=== PATIENT | male | born 1980 | race Caucasian/White ===

== ENCOUNTER 2018-06-04 10:16 | Inpatient (IN) ==
--- NOTE | 2018-06-04 10:30 | Emergency Department Note ---
Disposition Clinical Impression: Suicidal ideation Disposition: Admitted As Inpatient Condition: Fair Referrals: NONE,PCP [Primary Care Provider] - Forms: ED Satisfaction Letter Time of Disposition: 14:41 Psych HPI - General Chief Complaint: ED Psychiatric Symptoms Stated Complaint: SI Time Seen by Provider: 06/04/18 10:17 Source: patient, EMS Mode of arrival: EMS Limitations: no limitations Nursing Notes Reviewed: Yes Vital Signs Reviewed: Yes - History of Present Illness HPI Narrative: Nontoxic-appearing 38-year-old male is brought by EMS for evaluation of worsening depression and suicidal ideations. According to the patient, he was walking across the [place] [facility]. [place] when the thought of jumping off a bridge into water crossed his mind. He states that he became very emotional and tearful. He states that at that point, an unknown person or people contacted EMS. He has a history of prior attempts, one of which being holding a loaded 22 caliber pistol to his head. He denies any thoughts of homicidal ideation. The patient was reluctant to answer whether or not he was experiencing any auditory or visual hallucinations. Pt complaint: suicidal ideation, feels depressed Onset (ago): unknown Duration: getting worse History of similar episodes: Yes Improves with: none Worsens with: none Associated Psychiatric Symptoms: depression, suicidal ideation Associated symptoms: Reports: denies other symptoms Traumatic symptoms: denies traumatic injury Self harm or harm to others: admits thoughts of self harm, has plan - Related Data Home Medications Medication Instructions Recorded Confirmed Albuterol Sulfate [Ventolin Hfa] 2 puff IH Q4HR PRN 07/06/16 07/06/16 Atorvastatin [Lipitor] 40 mg PO HS 07/06/16 07/06/16 Docusate Sodium [Stool Softener] 1 cap PO BID PRN 07/06/16 07/06/16 Famotidine [Heartburn Prevention] 20 mg PO DAILY 07/06/16 07/06/16 Haloperidol Decanoate [Haldol 125 mg IM Q4W 07/06/16 07/06/16 Decanoate 100] Lisinopril [Zestril] 20 mg PO DAILY 07/06/16 07/06/16 [place]-3/Dha/Epa/Fish Oil [Fish Oil 1 each PO DAILY 07/06/16 07/06/16 1,000 mg Softgel] Ropinirole HCl [Requip] 2 mg PO DAILY 07/06/16 07/06/16 hydrOXYzine pamoate [Hydroxyzine 1 - 2 cap PO DAILY PRN 07/06/16 07/06/16 Pamoate] Previous Rx's Medication Instructions Recorded Diphenhydramine HCl [Nighttime 50 mg PO DAILY #30 capsule 07/09/16 Sleep Aid] Gabapentin [Neurontin] 600 mg PO BID PRN #60 capsule 07/09/16 Mirtazapine [Remeron] 15 mg PO HS #30 tablet 07/09/16 Ibuprofen [Ibu] 600 mg PO TID #28 tablet 03/13/18 levoFLOXacin [Levaquin] 500 mg PO DAILY #10 tablet 05/24/18 Allergies Allergy/AdvReac Type Severity Reaction Status Date / Time haloperidol [From Haldol] AdvReac Confusion Verified 05/27/18 17:58 risperidone [From Risperdal] AdvReac Confusion Verified 05/27/18 17:58 All systems ED: reviewed and negative except as stated. Review of Systems: As Per HPI Constitutional: Denies: fever, chills, weakness, weight change Eyes: Denies: eye pain, eye discharge, vision change ENT ED: Denies: ear pain, throat pain, dental pain, hearing loss, epistaxis, congestion, dysphagia Cardiovascular: Denies: chest pain, palpitations, dyspnea on exertion, edema, syncope Respiratory: Denies: cough, dyspnea, wheezes, hemoptysis, stridor Gastrointestinal: Denies: abdominal pain, nausea, vomiting, diarrhea, constipation, hematemesis, melena, hematochezia Genitourinary: Denies: urgency, dysuria, frequency, hematuria Musculoskeletal: Denies: back pain, neck pain, arthralgia, myalgia Integumentary: Denies: rash, abrasion, lesions Neurological: Denies: headache, weakness, numbness, paresthesias, confusion, abnormal gait, vertigo Psychiatric: Reports: as per HPI, depression, suicidal thoughts. Denies: anxiety, homicidal thoughts, auditory hallucinations, visual hallucinations Endocrine: Denies: fatigue Hematological/Lymphatic: Denies: easy bleeding, easy bruising Allergic/Immunologic: Denies: facial swelling, urticaria Past Medical History - Past Medical History Attestation: Yes The following information was validated with the patient. Source: patient, nursing notes reviewed Medical history: Reports: asthma, hyperlipidemia, hypertension, other Psychiatric history: Reports: prior suicide attempt, schizophrenia, previous psychiatric hospitalization - Social History Smoking Status: Current every day smoker Smokeless Tobacco Status: No Alcohol use: Reports: occasionally Drug use: Reports: none Physical Exam - General Limitations: no limitations General appearance: alert, in no apparent distress - Head Head exam: atraumatic, normocephalic, normal inspection - Eye Eye exam: Present: normal appearance, PERRL, EOMI. Absent: nystagmus - ENT ENT exam: mucous membranes moist - Neck Neck exam: Present: normal inspection, full ROM, trachea midline - Chest Chest inspection: Present: normal inspection, symmetric chest wall rise - Respiratory Respiratory exam: Present: normal lung sounds bilaterally - Cardiovascular Cardiovascular exam: Present: regular rate, normal rhythm, normal heart sounds - Abdominal Exam Abdominal exam: Present: soft, Non-Tender, normal bowel sounds - Extremities Exam Extremities exam: Present: normal inspection, full ROM. Absent: tenderness, pedal edema - Neurological Exam Neurological exam: Present: alert, oriented X3 - Psychiatric Psychiatric exam: Present: normal affect, normal mood - Skin Skin exam: Present: warm, dry, intact, normal color Course Course Narrative: 1134: I spoke with STEPHANIE Henson with [facility]. Sixto states that a kiosk sales representative from we will evaluate the patient in the emergency department at the next available opportunity. 1430: I have been informed that the patient will be admitted to the inpatient psychiatric unit at this facility. - Reevaluation(s) Reevaluation #1: I was informed by the [facility] nurse that the patient was complaining of discoloration and abnormal lie of his testicles, a point which was not disclosed upon initial evaluation with the patient. MARIA DEL CARMEN Torres supervised a testicular/genital exam. Exam reveals normal testicular lie. No discoloration. No swelling. No tenderness with palpation. No mass or palpable epididymal cord. No penile discharge or drainage. No rash, lesions, or ulcerations. No inguinal adenopathy. At this time, I feel that no further intervention or exploration and that this is required. The patient stated that this was a complaint that he noticed 3 weeks ago however it has all but resolved at this point. I do not feel ultrasound imaging or further laboratory workup is warranted. Time: 13:36 Vital Signs Temperature 99.1 F 06/04/18 10:19 Pulse Rate 78 06/04/18 10:19 Respiratory Rate 18 06/04/18 10:19 Blood Pressure 136/82 06/04/18 10:19 O2 Sat by Pulse Oximetry 100 06/04/18 10:19 Temperature 99.1 F 06/04/18 10:19 Pulse Rate 78 06/04/18 10:19 Respiratory Rate 18 06/04/18 10:19 Blood Pressure 136/82 06/04/18 10:19 O2 Sat by Pulse Oximetry 100 06/04/18 10:19 Oxygen Delivery Oxygen Delivery Room Air Psych - Lab Data Lab results reviewed: Yes I reviewed the patient's lab results. Lab results narrative: Lab Results 06/04/18 06/04/18 06/04/18 Range/Units 10:30 10:30 10:45 WBC 11.7 H (4.3-11.1) K/mcL RBC 5.16 (4.19-5.50) M/mcL Hgb 15.6 (12.9-16.9) g/dL Hct 45.8 (37.5-50.1) % MCV 88.8 (83.0-100.0) fL MCH 30.2 (28.0-33.3) pg MCHC 34.1 (31.6-35.5) g/dL RDW 12.6 (11.5-14.5) % Plt Count 222 (140-400) K/mcL MPV 9.9 (9.4-12.4) fL Immature Gran % 0.4 (0-4) % Seg Neutrophils % 78.9 % Lymphocytes % 14.3 % Monocytes % 5.7 % Eosinophils % 0.3 % Basophils % 0.4 % Neutrophils # 9.2 H (1.6-8.9) K/mcL Lymphocytes # 1.7 (0.6-4.6) K/mcL Monocytes # 0.7 (0.0-1.3) K/mcL Eosinophils # 0.0 (0.0-0.6) K/mcL Basophils # 0.1 (0.0-0.2) K/mcL Sodium (136-145) mEq/L Potassium (3.5-5.1) mEq/L Chloride (98-107) mEq/L Carbon Dioxide (23-29) mEq/L BUN (6-20) mg/dL Creatinine (0.70-1.30) mg/dL Est GFR ( Amer) (> 60) Est GFR (Non-Af Amer) (> 60) BUN/Creatinine Ratio (6-26) Glucose (70-105) mg/dL Calculated Osmolality (280-300) Calcium (8.6-10.3) mg/dL Urine Color Yellow (Yellow) Urine Clarity Clear (Clear) Urine pH 6.0 (5.0-8.0) pH Units Ur Specific [place] 1.021 (1.010-1.025) Urine Protein Negative (Neg-Trace) mg/dL Urine Glucose (UA) Normal (Normal) mg/dL Urine Ketones Negative (Negative) mg/dL Urine Blood Negative (Negative) Urine Nitrite Negative (Negative) Urine Bilirubin Negative (Negative) Urine Urobilinogen Normal (Normal) mg/dL Ur Leukocyte Esterase Negative (Negative) Salicylates (15.0-30.0) mg/dL Urine Opiates Screen Negative (Zyfrxn=899) ng/mL Acetaminophen (10-20) mcg/mL Ur Barbiturates Screen Negative (Adbdho=542) ng/mL Ur Phencyclidine Scrn Negative (Cutoff=25) ng/mL Ur Amphetamines Screen Negative (Rxgrwe=4495) ng/mL U Benzodiazepines Scrn Negative (Wixkyy=454) ng/mL Urine Cocaine Screen Negative (Cutoff= 300) ng/mL U Marijuana (THC) Screen Negative (Cutoff = 50) ng/mL Ur Drug Screen Interp See Below Ethyl Alcohol (Less than 10) mg/dL 06/04/18 Range/Units 10:45 WBC (4.3-11.1) K/mcL RBC (4.19-5.50) M/mcL Hgb (12.9-16.9) g/dL Hct (37.5-50.1) % MCV (83.0-100.0) fL MCH (28.0-33.3) pg MCHC (31.6-35.5) g/dL RDW (11.5-14.5) % Plt Count (140-400) K/mcL MPV (9.4-12.4) fL Immature Gran % (0-4) % Seg Neutrophils % % Lymphocytes % % Monocytes % % Eosinophils % % Basophils % % Neutrophils # (1.6-8.9) K/mcL Lymphocytes # (0.6-4.6) K/mcL Monocytes # (0.0-1.3) K/mcL Eosinophils # (0.0-0.6) K/mcL Basophils # (0.0-0.2) K/mcL Sodium 138 (136-145) mEq/L Potassium 4.2 (3.5-5.1) mEq/L Chloride 104 (98-107) mEq/L Carbon Dioxide 29 (23-29) mEq/L BUN 17 (6-20) mg/dL Creatinine 0.97 (0.70-1.30) mg/dL Est GFR ( Amer) > 60 (> 60) Est GFR (Non-Af Amer) > 60 (> 60) BUN/Creatinine Ratio 18 (6-26) Glucose 110 H (70-105) mg/dL Calculated Osmolality 288 (280-300) Calcium 9.8 (8.6-10.3) mg/dL Urine Color (Yellow) Urine Clarity (Clear) Urine pH (5.0-8.0) pH Units Ur Specific [place] (1.010-1.025) Urine Protein (Neg-Trace) mg/dL Urine Glucose (UA) (Normal) mg/dL Urine Ketones (Negative) mg/dL Urine Blood (Negative) Urine Nitrite (Negative) Urine Bilirubin (Negative) Urine Urobilinogen (Normal) mg/dL Ur Leukocyte Esterase (Negative) Salicylates < 2.5 L (15.0-30.0) mg/dL Urine Opiates Screen (Pbkovf=000) ng/mL Acetaminophen < 10 L (10-20) mcg/mL Ur Barbiturates Screen (Cjudpa=598) ng/mL Ur Phencyclidine Scrn (Cutoff=25) ng/mL Ur Amphetamines Screen (Bmdfxh=3263) ng/mL U Benzodiazepines Scrn (Ajymmr=059) ng/mL Urine Cocaine Screen (Cutoff= 300) ng/mL U Marijuana (THC) Screen (Cutoff = 50) ng/mL Ur Drug Screen Interp Ethyl Alcohol < 10 (Less than 10) mg/dL Result diagrams: 06/04/18 10:45 06/04/18 10:45 Lab Results 06/04/18 06/04/18 06/04/18 Range/Units 10:30 10:30 10:45 WBC 11.7 H (4.3-11.1) K/mcL RBC 5.16 (4.19-5.50) M/mcL Hgb 15.6 (12.9-16.9) g/dL Hct 45.8 (37.5-50.1) % MCV 88.8 (83.0-100.0) fL MCH 30.2 (28.0-33.3) pg MCHC 34.1 (31.6-35.5) g/dL RDW 12.6 (11.5-14.5) % Plt Count 222 (140-400) K/mcL MPV 9.9 (9.4-12.4) fL Immature Gran % 0.4 (0-4) % Seg Neutrophils % 78.9 % Lymphocytes % 14.3 % Monocytes % 5.7 % Eosinophils % 0.3 % Basophils % 0.4 % Neutrophils # 9.2 H (1.6-8.9) K/mcL Lymphocytes # 1.7 (0.6-4.6) K/mcL Monocytes # 0.7 (0.0-1.3) K/mcL Eosinophils # 0.0 (0.0-0.6) K/mcL Basophils # 0.1 (0.0-0.2) K/mcL Sodium (136-145) mEq/L Potassium (3.5-5.1) mEq/L Chloride (98-107) mEq/L Carbon Dioxide (23-29) mEq/L BUN (6-20) mg/dL Creatinine (0.70-1.30) mg/dL Est GFR ( Amer) (> 60) Est GFR (Non-Af Amer) (> 60) BUN/Creatinine Ratio (6-26) Glucose (70-105) mg/dL Calculated Osmolality (280-300) Calcium (8.6-10.3) mg/dL Urine Color Yellow (Yellow) Urine Clarity Clear (Clear) Urine pH 6.0 (5.0-8.0) pH Units Ur Specific [place] 1.021 (1.010-1.025) Urine Protein Negative (Neg-Trace) mg/dL Urine Glucose (UA) Normal (Normal) mg/dL Urine Ketones Negative (Negative) mg/dL Urine Blood Negative (Negative) Urine Nitrite Negative (Negative) Urine Bilirubin Negative (Negative) Urine Urobilinogen Normal (Normal) mg/dL Ur Leukocyte Esterase Negative (Negative) Salicylates (15.0-30.0) mg/dL Urine Opiates Screen Negative (Rahswt=874) ng/mL Acetaminophen (10-20) mcg/mL Ur Barbiturates Screen Negative (Dexumk=839) ng/mL Ur Phencyclidine Scrn Negative (Cutoff=25) ng/mL Ur Amphetamines Screen Negative (Eadxkp=8496) ng/mL U Benzodiazepines Scrn Negative (Xgiiwg=637) ng/mL Urine Cocaine Screen Negative (Cutoff= 300) ng/mL U Marijuana (THC) Screen Negative (Cutoff = 50) ng/mL Ur Drug Screen Interp See Below Ethyl Alcohol (Less than 10) mg/dL 06/04/18 Range/Units 10:45 WBC (4.3-11.1) K/mcL RBC (4.19-5.50) M/mcL Hgb (12.9-16.9) g/dL Hct (37.5-50.1) % MCV (83.0-100.0) fL MCH (28.0-33.3) pg MCHC (31.6-35.5) g/dL RDW (11.5-14.5) % Plt Count (140-400) K/mcL MPV (9.4-12.4) fL Immature Gran % (0-4) % Seg Neutrophils % % Lymphocytes % % Monocytes % % Eosinophils % % Basophils % % Neutrophils # (1.6-8.9) K/mcL Lymphocytes # (0.6-4.6) K/mcL Monocytes # (0.0-1.3) K/mcL Eosinophils # (0.0-0.6) K/mcL Basophils # (0.0-0.2) K/mcL Sodium 138 (136-145) mEq/L Potassium 4.2 (3.5-5.1) mEq/L Chloride 104 (98-107) mEq/L Carbon Dioxide 29 (23-29) mEq/L BUN 17 (6-20) mg/dL Creatinine 0.97 (0.70-1.30) mg/dL Est GFR ( Amer) > 60 (> 60) Est GFR (Non-Af Amer) > 60 (> 60) BUN/Creatinine Ratio 18 (6-26) Glucose 110 H (70-105) mg/dL Calculated Osmolality 288 (280-300) Calcium 9.8 (8.6-10.3) mg/dL Urine Color (Yellow) Urine Clarity (Clear) Urine pH (5.0-8.0) pH Units Ur Specific [place] (1.010-1.025) Urine Protein (Neg-Trace) mg/dL Urine Glucose (UA) (Normal) mg/dL Urine Ketones (Negative) mg/dL Urine Blood (Negative) Urine Nitrite (Negative) Urine Bilirubin (Negative) Urine Urobilinogen (Normal) mg/dL Ur Leukocyte Esterase (Negative) Salicylates < 2.5 L (15.0-30.0) mg/dL Urine Opiates Screen (Dlmpsl=852) ng/mL Acetaminophen < 10 L (10-20) mcg/mL Ur Barbiturates Screen (Bzlcno=466) ng/mL Ur Phencyclidine Scrn (Cutoff=25) ng/mL Ur Amphetamines Screen (Dxwjzs=0049) ng/mL U Benzodiazepines Scrn (Igfdez=857) ng/mL Urine Cocaine Screen (Cutoff= 300) ng/mL U Marijuana (THC) Screen (Cutoff = 50) ng/mL Ur Drug Screen Interp Ethyl Alcohol < 10 (Less than 10) mg/dL Psychiatric Medical Clearance - Medical Clearance Checklist Does the patient have a NEW psychiatric condition?: No Any abnormalities indicating possible medical illness?: No Any history of medical issues?: No Medical History: No Social History Section defined Any abnormal vital signs prior to transfer?: No Current Vitals: Last Vital Signs Temp 99.1 F 06/04/18 10:19 Pulse 78 06/04/18 10:19 Resp 18 06/04/18 10:19 BP 136/82 06/04/18 10:19 Pulse Ox 100 06/04/18 10:19 Is the patient intoxicated or cognitively impaired?: No Psychiatric Lab Panel: Drug Levels and Toxicity 06/04/18 06/04/18 10:30 10:45 Urine Opiates Screen Negative Acetaminophen < 10 L Ur Barbiturates Screen Negative Ur Phencyclidine Scrn Negative Ur Amphetamines Screen Negative U Benzodiazepines Scrn Negative Urine Cocaine Screen Negative U Marijuana (THC) Screen Negative Ethyl Alcohol < 10 Any abnormalities on the physical exam?: No Any abnormal labs?: No Abnormal Labs: Abnormal lab results WBC 11.7 K/mcL (4.3-11.1) H 06/04/18 10:45 Neutrophils # 9.2 K/mcL (1.6-8.9) H 06/04/18 10:45 Glucose 110 mg/dL (70-105) H 06/04/18 10:45 Salicylates < 2.5 mg/dL (15.0-30.0) L 06/04/18 10:45 Acetaminophen < 10 mcg/mL (10-20) L 06/04/18 10:45 Does the patient require durable medical equiptment?: No Is the patient ambulatory?: Yes Is the patient a fall risk?: No Has the patient been medically cleared?: Yes Statement of Medical Clearance: I have evaluated the patient, reviewed diagnostic information, and certify that the patient's medical condition is sufficiently stable that transfer to the psychiatric unit does not pose a significant risk of deterioration.
[2018-06-04 10:46] LABS: Bilirubin,Urine Negative (Negative); Blood,Urine Negative (Negative); Clarity,Urine Clear (Clear); Color,Urine Yellow (Yellow); Glucose,Urine (UA) Normal (Normal); Ketones,Urine Negative (Negative); Leukocyte Esterase,Urine Negative (Negative); Nitrite,Urine Negative (Negative); Protein,Urine Negative (Neg-Trace); Specific Gravity,Urine 1.021 (1.010-1.025); Urobilinogen,Urine Normal (Normal)
[2018-06-04 10:54] LABS: Amphetamine Screen,Urine Negative ng/mL (Cutoff=1000); Barbiturate Screen,Urine Negative ng/mL (Cutoff=200); Benzodiazepines Screen,Urine Negative ng/mL (Cutoff=200); Cannabinoid Screen,Urine Negative ng/mL (Cutoff = 50); Cocaine Screen,Urine Negative ng/mL (Cutoff= 300); Opiate Screen,Urine Negative ng/mL (Cutoff=300); Phencyclidine Screen,Urine Negative ng/mL (Cutoff=25)
--- NOTE | 2018-06-04 10:58 | Emergency Department Note ---
Disposition Clinical Impression: Suicidal ideation Disposition: Admitted As Inpatient Condition: Fair Referrals: NONE,PCP [Primary Care Provider] - Forms: ED Satisfaction Letter Time of Disposition: 14:43 General Adult HPI - General Chief complaint: ED Psychiatric Symptoms Stated complaint: SI Time Seen by Provider: 06/04/18 10:17 Source: patient, EMS Mode of arrival: EMS Limitations: no limitations - History of Present Illness Pain Scale: 0 - Related Data Home Medications Medication Instructions Recorded Confirmed Albuterol Sulfate [Ventolin Hfa] 2 puff IH Q4HR PRN 07/06/16 07/06/16 Atorvastatin [Lipitor] 40 mg PO HS 07/06/16 07/06/16 Docusate Sodium [Stool Softener] 1 cap PO BID PRN 07/06/16 07/06/16 Famotidine [Heartburn Prevention] 20 mg PO DAILY 07/06/16 07/06/16 Haloperidol Decanoate [Haldol 125 mg IM Q4W 07/06/16 07/06/16 Decanoate 100] Lisinopril [Zestril] 20 mg PO DAILY 07/06/16 07/06/16 [place]-3/Dha/Epa/Fish Oil [Fish Oil 1 each PO DAILY 07/06/16 07/06/16 1,000 mg Softgel] Ropinirole HCl [Requip] 2 mg PO DAILY 07/06/16 07/06/16 hydrOXYzine pamoate [Hydroxyzine 1 - 2 cap PO DAILY PRN 07/06/16 07/06/16 Pamoate] Previous Rx's Medication Instructions Recorded Diphenhydramine HCl [Nighttime 50 mg PO DAILY #30 capsule 07/09/16 Sleep Aid] Gabapentin [Neurontin] 600 mg PO BID PRN #60 capsule 07/09/16 Mirtazapine [Remeron] 15 mg PO HS #30 tablet 07/09/16 Ibuprofen [Ibu] 600 mg PO TID #28 tablet 03/13/18 levoFLOXacin [Levaquin] 500 mg PO DAILY #10 tablet 05/24/18 Allergies Allergy/AdvReac Type Severity Reaction Status Date / Time haloperidol [From Haldol] AdvReac Confusion Verified 05/27/18 17:58 risperidone [From Risperdal] AdvReac Confusion Verified 05/27/18 17:58 Constitutional: Denies: fever, chills, weakness, weight change Eyes: Denies: eye pain, eye discharge, vision change ENT ED: Denies: ear pain, throat pain, dental pain, hearing loss, epistaxis, congestion, dysphagia Cardiovascular: Denies: chest pain, palpitations, dyspnea on exertion, edema, syncope Respiratory: Denies: cough, dyspnea, wheezes, hemoptysis, stridor Gastrointestinal: Denies: abdominal pain, nausea, vomiting, diarrhea, constipation, hematemesis, melena, hematochezia Genitourinary: Denies: urgency, dysuria, frequency, hematuria Musculoskeletal: Denies: back pain, neck pain, arthralgia, myalgia Integumentary: Denies: rash, abrasion, lesions Neurological: Denies: headache, weakness, numbness, paresthesias, confusion, abnormal gait, vertigo Psychiatric: Reports: as per HPI, depression, suicidal thoughts. Denies: anxiety, homicidal thoughts, auditory hallucinations, visual hallucinations Endocrine: Denies: fatigue Hematological/Lymphatic: Denies: easy bleeding, easy bruising Allergic/Immunologic: Denies: facial swelling, urticaria Past Medical History - Past Medical History Medical history: Reports: asthma, hyperlipidemia, hypertension, other Psychiatric history: Reports: prior suicide attempt, schizophrenia, previous psychiatric hospitalization - Social History Smoking Status: Current every day smoker Smokeless Tobacco Status: No Alcohol use: Reports: occasionally Drug use: Reports: none Physical Exam - General Limitations: no limitations General appearance: alert, in no apparent distress Course Vital Signs Temperature 99.1 F 06/04/18 10:19 Pulse Rate 78 06/04/18 10:19 Respiratory Rate 18 06/04/18 10:19 Blood Pressure 136/82 06/04/18 10:19 O2 Sat by Pulse Oximetry 100 06/04/18 10:19 Temperature 99.1 F 06/04/18 10:19 Pulse Rate 78 06/04/18 10:19 Respiratory Rate 18 06/04/18 10:19 Blood Pressure 136/82 06/04/18 10:19 O2 Sat by Pulse Oximetry 100 06/04/18 10:19 Oxygen Delivery Oxygen Delivery Room Air Medical Decision Making - Lab Data Result diagrams: 06/04/18 10:45 06/04/18 10:45 Lab Results 06/04/18 06/04/18 06/04/18 Range/Units 10:30 10:30 10:45 WBC 11.7 H (4.3-11.1) K/mcL RBC 5.16 (4.19-5.50) M/mcL Hgb 15.6 (12.9-16.9) g/dL Hct 45.8 (37.5-50.1) % MCV 88.8 (83.0-100.0) fL MCH 30.2 (28.0-33.3) pg MCHC 34.1 (31.6-35.5) g/dL RDW 12.6 (11.5-14.5) % Plt Count 222 (140-400) K/mcL MPV 9.9 (9.4-12.4) fL Immature Gran % 0.4 (0-4) % Seg Neutrophils % 78.9 % Lymphocytes % 14.3 % Monocytes % 5.7 % Eosinophils % 0.3 % Basophils % 0.4 % Neutrophils # 9.2 H (1.6-8.9) K/mcL Lymphocytes # 1.7 (0.6-4.6) K/mcL Monocytes # 0.7 (0.0-1.3) K/mcL Eosinophils # 0.0 (0.0-0.6) K/mcL Basophils # 0.1 (0.0-0.2) K/mcL Sodium (136-145) mEq/L Potassium (3.5-5.1) mEq/L Chloride (98-107) mEq/L Carbon Dioxide (23-29) mEq/L BUN (6-20) mg/dL Creatinine (0.70-1.30) mg/dL Est GFR ( Amer) (> 60) Est GFR (Non-Af Amer) (> 60) BUN/Creatinine Ratio (6-26) Glucose (70-105) mg/dL Calculated Osmolality (280-300) Calcium (8.6-10.3) mg/dL Urine Color Yellow (Yellow) Urine Clarity Clear (Clear) Urine pH 6.0 (5.0-8.0) pH Units Ur Specific [place] 1.021 (1.010-1.025) Urine Protein Negative (Neg-Trace) mg/dL Urine Glucose (UA) Normal (Normal) mg/dL Urine Ketones Negative (Negative) mg/dL Urine Blood Negative (Negative) Urine Nitrite Negative (Negative) Urine Bilirubin Negative (Negative) Urine Urobilinogen Normal (Normal) mg/dL Ur Leukocyte Esterase Negative (Negative) Salicylates (15.0-30.0) mg/dL Urine Opiates Screen Negative (Miggrc=352) ng/mL Acetaminophen (10-20) mcg/mL Ur Barbiturates Screen Negative (Sejawc=563) ng/mL Ur Phencyclidine Scrn Negative (Cutoff=25) ng/mL Ur Amphetamines Screen Negative (Pysxjq=5458) ng/mL U Benzodiazepines Scrn Negative (Dktiec=916) ng/mL Urine Cocaine Screen Negative (Cutoff= 300) ng/mL U Marijuana (THC) Screen Negative (Cutoff = 50) ng/mL Ur Drug Screen Interp See Below Ethyl Alcohol (Less than 10) mg/dL 06/04/18 Range/Units 10:45 WBC (4.3-11.1) K/mcL RBC (4.19-5.50) M/mcL Hgb (12.9-16.9) g/dL Hct (37.5-50.1) % MCV (83.0-100.0) fL MCH (28.0-33.3) pg MCHC (31.6-35.5) g/dL RDW (11.5-14.5) % Plt Count (140-400) K/mcL MPV (9.4-12.4) fL Immature Gran % (0-4) % Seg Neutrophils % % Lymphocytes % % Monocytes % % Eosinophils % % Basophils % % Neutrophils # (1.6-8.9) K/mcL Lymphocytes # (0.6-4.6) K/mcL Monocytes # (0.0-1.3) K/mcL Eosinophils # (0.0-0.6) K/mcL Basophils # (0.0-0.2) K/mcL Sodium 138 (136-145) mEq/L Potassium 4.2 (3.5-5.1) mEq/L Chloride 104 (98-107) mEq/L Carbon Dioxide 29 (23-29) mEq/L BUN 17 (6-20) mg/dL Creatinine 0.97 (0.70-1.30) mg/dL Est GFR ( Amer) > 60 (> 60) Est GFR (Non-Af Amer) > 60 (> 60) BUN/Creatinine Ratio 18 (6-26) Glucose 110 H (70-105) mg/dL Calculated Osmolality 288 (280-300) Calcium 9.8 (8.6-10.3) mg/dL Urine Color (Yellow) Urine Clarity (Clear) Urine pH (5.0-8.0) pH Units Ur Specific [place] (1.010-1.025) Urine Protein (Neg-Trace) mg/dL Urine Glucose (UA) (Normal) mg/dL Urine Ketones (Negative) mg/dL Urine Blood (Negative) Urine Nitrite (Negative) Urine Bilirubin (Negative) Urine Urobilinogen (Normal) mg/dL Ur Leukocyte Esterase (Negative) Salicylates < 2.5 L (15.0-30.0) mg/dL Urine Opiates Screen (Rzroxv=960) ng/mL Acetaminophen < 10 L (10-20) mcg/mL Ur Barbiturates Screen (Cejhcc=853) ng/mL Ur Phencyclidine Scrn (Cutoff=25) ng/mL Ur Amphetamines Screen (Pbmdmq=2718) ng/mL U Benzodiazepines Scrn (Bbifxg=820) ng/mL Urine Cocaine Screen (Cutoff= 300) ng/mL U Marijuana (THC) Screen (Cutoff = 50) ng/mL Ur Drug Screen Interp Ethyl Alcohol < 10 (Less than 10) mg/dL Attestation Statement - Attestation Attestation: For this encounter, I have reviewed the [employer] or PA documentation, treatment plan, and medical decision making; and I have had face to face time with this patient. Patient to the ED with suicidal ideation. [place] on [address] Patient laying in bed. Talking to a chair. Denies physical complaint. Plan. Medical clearance and 1A evaluation. Patient admitted to psych
[2018-06-04 11:01] LABS: Basophils # 0.1 K/mcL (0.0-0.2); Basophils % 0.4 %; Eosinophils % 0.3 %; Hematocrit 45.8 % (37.5-50.1); Hemoglobin 15.6 g/dL (12.9-16.9); Immature Granulocytes % 0.4 % (0-4); Lymphocytes # 1.7 K/mcL (0.6-4.6); Lymphocytes % 14.3 %; Mean Corpuscular HGB Conc 34.1 g/dL (31.6-35.5); Mean Corpuscular Hemoglobin 30.2 pg (28.0-33.3); Mean Corpuscular Volume 88.8 fL (83.0-100.0); Mean Platelet Volume 9.9 fL (9.4-12.4); Monocytes # 0.7 K/mcL (0.0-1.3); Monocytes % 5.7 %; Neutrophils # 9.2 K/mcL (1.6-8.9); Platelet Count 222 K/mcL (140-400); Red Blood Count 5.16 M/mcL (4.19-5.50); Red Cell Distribution Width 12.6 % (11.5-14.5); Segmented Neutrophils % 78.9 %
[2018-06-04 11:25] LABS: Acetaminophen < 10 mcg/mL (10-20); BUN/Creatinine Ratio 18 (6-26); Blood Urea Nitrogen 17 mg/dL (6-20); Calcium 9.8 mg/dL (8.6-10.3); Carbon Dioxide 29 mEq/L (23-29); Chloride 104 mEq/L (98-107); Ethanol < 10 mg/dL (Less than 10); Glucose 110 mg/dL (70-105); Osmolality,Calculated 288 (280-300); Potassium 4.2 mEq/L (3.5-5.1); Salicylate < 2.5 mg/dL (15.0-30.0); Sodium 138 mEq/L (136-145); eGFR For Non-African Americans > 60 (> 60)
[2018-06-04] MEDS ORDERED: Acetaminophen 325 MG TABLET PO PRN (15:18)
[2018-06-04] MEDS ORDERED: Mag Hydrox/Al Hydrox/Simeth 30 ML UDC PO PRN (15:18)
[2018-06-04] MEDS ORDERED: Haloperidol Lactate 5 MG/ML VIAL IM PRN (15:18)
[2018-06-04] MEDS ORDERED: MOM Conc 10 ML UD.LIQ PO PRN (15:18)
[2018-06-04] MEDS ORDERED: *HR* LORazepam 2 MG/ML VIAL IM PRN (15:18)
[2018-06-04] MEDS ORDERED: Ibuprofen 400 MG TABLET PO PRN (15:18)
[2018-06-04] MEDS ORDERED: *HR* LORazepam 1 MG TABLET PO PRN (15:18)
[2018-06-04] MEDS: hydrOXYzine pamoate 25 MG CAPSULE PO PRN (20:50)
[2018-06-05] MEDS: Nicotine 21 MG PATCH.TD24 TD SCH (12:12)
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
[2018-06-05] MEDS ORDERED: hydrOXYzine pamoate 25 MG CAPSULE PO PRN (12:24)
[2018-06-05] MEDS ORDERED: Gabapentin 300 MG CAPSULE PO PRN (12:24)
[2018-06-05] MEDS ORDERED: Aripiprazole Lauroxil [Aristada] 882 MG IM SCH (12:30)
[2018-06-05] MEDS: Venlafaxine XR (24 HR) 75 MG CAP.ER.24H PO SCH (14:40)
[2018-06-05] MEDS: hydrOXYzine pamoate 25 MG CAPSULE PO PRN (20:30)
[2018-06-06] MEDS: Nicotine 21 MG PATCH.TD24 TD SCH (08:41)
[2018-06-06] MEDS: Famotidine 20 MG TABLET PO SCH (08:42)
[2018-06-06] MEDS: rOPINIRole 1 MG TABLET PO SCH (08:42)
[2018-06-06] MEDS: Lisinopril 20 MG TABLET PO SCH (08:42)
[2018-06-06] MEDS: Venlafaxine XR (24 HR) 75 MG CAP.ER.24H PO SCH (08:42)
--- NOTE | 2018-06-06 13:46 | Psychiatry Progress Note ---
Date of Encounter: 06/06/18 Time of Encounter: 13:20 Subjective Interval history: Patient seen today , case d/w treatment team . patient remains psychotic , has been keeping to himself, denies suicidal ideation , denies any bad auditory hallucination ,states voices are good voices , denies visual hallucination , he is feeling better but is anxious. start discharge planning. pt has case management. states sometimes they ask me to take my medicine so i take them and then forget to take them , educated to take medicine at his case management , he acknowledged. Review of Systems Psychiatric: Reports: depression, anxiety, abnormal sleep pattern, visual hallucinations, difficulty concentrating Results - Vital Signs Vital Signs: Temp Pulse Resp BP Pulse Ox 97.8 F 60 18 119/78 98 06/06/18 10:34 06/06/18 10:34 06/06/18 10:34 06/06/18 10:34 06/05/18 08:25 Assessment and Plan (1) Suicidal ideation Current visit: Yes Status: Acute Risks, benefits, side effects, alternatives discussed w/pt: Yes Patient agreeable to treatment: Yes (2) Schizoaffective disorder Current visit: Yes Status: Acute Risks, benefits, side effects, alternatives discussed w/pt: Yes Patient agreeable to treatment: Yes Qualifiers: Schizoaffective disorder type: depressive Qualified Code(s): F25.1 - Schizoaffective disorder, depressive type Consult Discharge Plan - Plan Referrals: [facility] [Outside] - 06/15/18 2:00 pm (The above apointment is with Daya Adams for mental health counseling and case managment servcies. You will also for Salome Graham for outpatient psychiatric assessment and medciation management services on 06/24/2018 at 9:30am.) Psychiatry Exam - Constitutional Vitals: Temp Pulse Resp BP Pulse Ox 97.8 F 60 18 119/78 98 06/06/18 10:34 06/06/18 10:34 06/06/18 10:34 06/06/18 10:34 06/05/18 08:25 General appearance: thin - Musculoskeletal Gait: normal Station: other Strength & Tone: normal for patient - Psychiatric Patient Orientation: Yes Person, Yes Time, Yes Place Level of alertness: Alert Behavior: calm, cooperative Psychomotor activity: Normal Eye Contact: Maintains Eye Contact Mood Description: Euthymic/stable Affect description: constricted Speech Volume: Normal Speech pattern: coherent Language & Vocabulary: consistent with education Thought Process: Intact Thought Content: Yes Preoccupation, Yes Paranoid delusion Perceptual Disturbances: Yes Auditory hallucinations Memory Description: Grossly Intact Patient Reliability: Reliable Historian Fund of knowledge: Yes below average Judgment: Limited Insight: Partial
[2018-06-06] MEDS: hydrOXYzine pamoate 25 MG CAPSULE PO PRN (20:07)
[2018-06-07] MEDS: Venlafaxine XR (24 HR) 75 MG CAP.ER.24H PO SCH (08:17)
[2018-06-07] MEDS: Famotidine 20 MG TABLET PO SCH (08:17)
[2018-06-07] MEDS: Nicotine 21 MG PATCH.TD24 TD SCH (08:17)
[2018-06-07] MEDS: Lisinopril 20 MG TABLET PO SCH (08:18)
[2018-06-07] MEDS: rOPINIRole 1 MG TABLET PO SCH (08:18)
[2018-06-07 09:26] VITALS: BP 118/79
--- NOTE | 2018-06-07 10:03 | Discharge Summary ---
Date of Encounter: 06/07/18 Time of Encounter: 09:32 Diagnosis - Discharge Diagnosis (1) Suicidal ideation Status: Resolved Comments: Patient not having suicidal/homicidal ideation . (2) Schizoaffective disorder Status: Chronic Comments: patient showed improvement on monthly injectable aristada next is due 06/11 . Qualifiers: Schizoaffective disorder type: depressive Qualified Code(s): F25.1 - Schizoaffective disorder, depressive type Medications - Discharge Medications Prescriptions: Venlafaxine XR (24 HR) [Effexor XR] 150 mg PO DAILY #30 cap.er.24h Atorvastatin [Lipitor] 40 mg PO HS 07/06/16 [History] Famotidine [Heartburn Prevention] 20 mg PO DAILY 07/06/16 [History] Lisinopril [Zestril] 20 mg PO DAILY 07/06/16 [History] Ropinirole HCl [Requip] 2 mg PO DAILY 07/06/16 [History] hydrOXYzine pamoate [Hydroxyzine Pamoate] 1 cap PO TID PRN 07/06/16 [History] Gabapentin [Neurontin] 600 mg PO BID PRN #60 capsule 07/09/16 [Rx] Aripiprazole Lauroxil [Aristada] 882 mg IM Q4W 06/04/18 [History] Venlafaxine XR (24 HR) [Effexor XR] 150 mg PO DAILY #30 cap.er.24h 06/07/18 [Rx] 3 Allergy/AdvReac Type Severity Reaction Status Date / Time haloperidol [From Haldol] AdvReac Confusion Verified 05/27/18 17:58 risperidone [From Risperdal] AdvReac Confusion Verified 05/27/18 17:58 Provider Date of admission: 06/04/18 14:42 Primary care physician: PCP NONE Psychiatry Exam - Constitutional Vitals: Temp Pulse Resp BP Pulse Ox 97.4 F L 58 16 118/79 98 06/07/18 09:00 06/07/18 09:00 06/07/18 09:00 06/07/18 09:00 06/05/18 08:25 General appearance: age & developmentally appropriate, well-groomed, well- nourished - Musculoskeletal Gait: normal Station: relaxed Strength & Tone: normal for patient - Psychiatric Patient Orientation: Yes Person, Yes Time, Yes Place Level of alertness: Alert Behavior: cooperative Psychomotor activity: Normal Eye Contact: Maintains Eye Contact Mood Description: Euthymic/stable Affect description: congruent with mood Speech Volume: Normal Speech pattern: normal rate Language & Vocabulary: consistent with education Thought Process: Intact Thought Content: Yes Intact Perceptual Disturbances: No Auditory hallucinations, No Visual hallucinations Attention Span Ability: Capable of Focused Attention Memory Description: Grossly Intact Patient Reliability: Reliable Historian Fund of knowledge: Yes below average Intelligence Estimate: Below Average Judgment: Fair Insight: Partial Hospital Course Hospital course: Mr. Ewing is a 38 year old male was admitted from ED after he tried to jump off the bridge but then did not , he has h/o Schizoaffective disorder, alcohol abuse and lower cognitive functioning. no substance use , he has been taking his medication and get medicine daily from case management. he was depress and effexor xr was increased to 150 mg and all other medications continued. he showed improvement , denied suicidal/homicidal ideation , no psychosis at present. moods better and he feels happy today . plan to discharge patient to his family and follow up referal given. Time spent discussing smoking cessation with patient: 3 to 10 minutes Does patient wish to continue nicotine replacement upon disc: No (states i am not ready i have already cut down.) - Time Spent with Patient Total time spent providing and/or coordinating discharge services: Greater than 30 minutes Assessment and Plan - Patient/Caregiver Discharge Instructions Activity: resume usual activities as tolerated Diet: regular diet - Follow up Plan Follow up with: [facility] [Outside] - 06/15/18 2:00 pm (The above apointment is with Daya Adams for mental health counseling and case managment servcies. You will also for Salome Graham for outpatient psychiatric assessment and medciation management services on 06/24/2018 at 9:30am.) Functional capacity at discharge: independent ambulation Overall status at discharge: patient is back to baseline Disposition: Home, Self-Care Quality - Multiple Antipsychotics Patient discharged on 2 or more antipsychotic medications: No Procedures - Procedures Procedures: Medication Management, Crisis Stabilization, Supportive Therapy, Group Therapy, Psychoeducational Therapy
[2018-06-11] MEDS ORDERED: Aripiprazole Lauroxil [Aristada] 882 MG IM SCH (09:00)
== END 2018-06-07 10:40 | disposition home or self-care (01) | DRG 885 ==
LOC: EMEROOARM 10:16 → 1ANU 14:42
PROVIDERS: ADMIT Psychiatry & Neurology Psychiatry; ATTEND Psychiatry & Neurology Psychiatry

== ENCOUNTER 2018-06-24 13:48 | Observation (INO) ==
[2018-06-24] MEDS ORDERED: Ziprasidone injection 20 MG/ML VIAL IM ONE (14:23)
--- NOTE | 2018-06-24 14:28 | Emergency Department Note ---
Disposition Clinical Impression: Elevated ETOH level Qualifiers: Blood alcohol level: 120-199 mg/100 ml Qualified Code(s): Y90.6 - Blood alcohol level of 120-199 mg/100 ml Psychosis Qualifiers: Psychosis type: unspecified psychosis type Qualified Code(s): F29 - Unspecified psychosis not due to a substance or known physiological condition Disposition: Still a Patient Referrals: NONE,PCP [Primary Care Provider] - Forms: ED Satisfaction Letter Psych HPI - General Chief Complaint: ED Psychiatric Symptoms Stated Complaint: 1A Time Seen by Provider: 06/24/18 14:00 Source: patient, EMS Limitations: altered mental status Nursing Notes Reviewed: Yes Vital Signs Reviewed: Yes - History of Present Illness HPI Narrative: 38-year-old male presents emergency department with concern for agitation. Patient states that he does not know was going on. He does not have any homicidal or suicidal ideations. Was reported that patient turned over and slammed a table outside of his outside psychiatric facility. Patient states he is taking a super drug at home. - Related Data Home Medications Medication Instructions Recorded Confirmed RX: Atorvastatin [Lipitor] 40 mg PO HS 07/06/16 06/14/18 RX: Famotidine [Heartburn 20 mg PO DAILY 07/06/16 06/14/18 Prevention] RX: Lisinopril [Zestril] 20 mg PO DAILY 07/06/16 06/14/18 RX: Ropinirole HCl [Requip] 2 mg PO DAILY 07/06/16 06/14/18 RX: hydrOXYzine pamoate 1 cap PO TID PRN 07/06/16 06/14/18 [Hydroxyzine Pamoate] RX: Aripiprazole Lauroxil 882 mg IM Q4W 06/04/18 06/14/18 [Aristada] Previous Rx's Medication Instructions Recorded RX: Gabapentin [Neurontin] 600 mg PO BID PRN #60 capsule 07/09/16 RX: Venlafaxine XR (24 HR) 150 mg PO DAILY #30 cap.er.24h 06/07/18 [Effexor XR] levoFLOXacin [Levaquin] 500 mg PO DAILY #9 tablet 06/14/18 Allergies Allergy/AdvReac Type Severity Reaction Status Date / Time haloperidol [From Haldol] AdvReac Confusion Verified 05/27/18 17:58 risperidone [From Risperdal] AdvReac Confusion Verified 05/27/18 17:58 All systems ED: reviewed and negative except as stated. Review of Systems: As Per HPI Constitutional: Denies: fever Cardiovascular: Denies: chest pain Respiratory: Denies: dyspnea Gastrointestinal: Denies: abdominal pain Genitourinary: Denies: dysuria Psychiatric: Reports: other (Agitation). Denies: suicidal thoughts, homicidal thoughts, auditory hallucinations, visual hallucinations Past Medical History - Past Medical History Medical history: Reports: asthma, hypertension Psychiatric history: Reports: anxiety, depression, prior suicide attempt, p revious psychiatric hospitalization - Social History Smoking Status: Current every day smoker Smokeless Tobacco Status: No Alcohol use: Reports: occasionally Drug use: Reports: none Physical Exam - General Limitations: no limitations General appearance: alert, in no apparent distress - Head Head exam: normocephalic - Eye Eye exam: Present: EOMI - ENT ENT exam: normal oropharynx - Neck Neck exam: Present: trachea midline - Chest Chest inspection: Present: symmetric chest wall rise - Respiratory Respiratory exam: Present: normal lung sounds bilaterally. Absent: respiratory distress - Cardiovascular Cardiovascular exam: Present: tachycardia, normal heart sounds - Extremities Exam Extremities exam: Present: full ROM - Back Exam Back exam: Present: full ROM - Neurological Exam Neurological exam: Present: alert, CN II-XII intact - Psychiatric Psychiatric exam: Present: agitated, manic. Absent: homicidal ideation, suicidal ideation - Skin Skin exam: Present: warm, dry, normal color Course Vital Signs Temperature 99.0 F 06/24/18 13:56 Pulse Rate 112 06/24/18 13:56 Respiratory Rate 18 06/24/18 13:56 Blood Pressure 117/64 06/24/18 13:56 O2 Sat by Pulse Oximetry 98 06/24/18 13:56 Temperature 99.0 F 06/24/18 13:56 Pulse Rate 112 06/24/18 13:56 Respiratory Rate 18 06/24/18 13:56 Blood Pressure 117/64 06/24/18 13:56 O2 Sat by Pulse Oximetry 98 06/24/18 13:56 Oxygen Delivery Oxygen Delivery Room Air Psych - MDM Narrative Medical decision making narrative: 38-year-old male presents emergency department with concern for agitation, appears manic. Patient will be cleared medically and we will have psychiatry to evaluate him. He has been pink slipped. Patient has elevated EtOH of 179. Cannot be medically cleared at this time. Patient reports drinking excessively today. At time of shift change, patient's EtOH is still high. Awaiting repeat before medically clear. Transfer of care given to Dr. Kathy Pennington. - Lab Data Result diagrams: 06/24/18 14:22 06/24/18 14:22 Lab Results 06/24/18 06/24/18 06/24/18 Range/Units 13:59 14:09 14:22 WBC 9.6 (4.3-11.1) K/mcL RBC 5.11 (4.19-5.50) M/mcL Hgb 15.6 (12.9-16.9) g/dL Hct 46.2 (37.5-50.1) % MCV 90.4 (83.0-100.0) fL MCH 30.5 (28.0-33.3) pg MCHC 33.8 (31.6-35.5) g/dL RDW 13.2 (11.5-14.5) % Plt Count 281 (140-400) K/mcL MPV 9.3 L (9.4-12.4) fL Immature Gran % 0.5 (0-4) % Seg Neutrophils % 66.4 % Lymphocytes % 22.5 % Monocytes % 8.4 % Eosinophils % 1.5 % Basophils % 0.7 % Neutrophils # 6.4 (1.6-8.9) K/mcL Lymphocytes # 2.2 (0.6-4.6) K/mcL Monocytes # 0.8 (0.0-1.3) K/mcL Eosinophils # 0.1 (0.0-0.6) K/mcL Basophils # 0.1 (0.0-0.2) K/mcL Sodium (136-145) mEq/L Potassium (3.5-5.1) mEq/L Chloride (98-107) mEq/L Carbon Dioxide (23-29) mEq/L BUN (6-20) mg/dL Creatinine (0.70-1.30) mg/dL Est GFR ( Amer) (> 60) Est GFR (Non-Af Amer) (> 60) BUN/Creatinine Ratio (6-26) Glucose (70-105) mg/dL Calculated Osmolality (280-300) Calcium (8.6-10.3) mg/dL Urine Color Yellow (Yellow) Urine Clarity Clear (Clear) Urine pH 6.5 (5.0-8.0) pH Units Ur Specific [place] 1.008 L (1.010-1.025) Urine Protein Negative (Neg-Trace) mg/dL Urine Glucose (UA) Normal (Normal) mg/dL Urine Ketones Negative (Negative) mg/dL Urine Blood Negative (Negative) Urine Nitrite Negative (Negative) Urine Bilirubin Negative (Negative) Urine Urobilinogen Normal (Normal) mg/dL Ur Leukocyte Esterase Negative (Negative) Salicylates (15.0-30.0) mg/dL Urine Opiates Screen Negative (Csxxax=885) ng/mL Acetaminophen (10-20) mcg/mL Ur Barbiturates Screen Negative (Gelomx=521) ng/mL Ur Phencyclidine Scrn Negative (Cutoff=25) ng/mL Ur Amphetamines Screen Negative (Qutlti=0888) ng/mL U Benzodiazepines Scrn Negative (Vbtthe=235) ng/mL Urine Cocaine Screen Negative (Cutoff= 300) ng/mL U Marijuana (THC) Screen Negative (Cutoff = 50) ng/mL Ur Drug Screen Interp See Below Ethyl Alcohol (Less than 10) mg/dL 06/24/18 06/24/18 06/24/18 Range/Units 14:22 17:13 20:08 WBC (4.3-11.1) K/mcL RBC (4.19-5.50) M/mcL Hgb (12.9-16.9) g/dL Hct (37.5-50.1) % MCV (83.0-100.0) fL MCH (28.0-33.3) pg MCHC (31.6-35.5) g/dL RDW (11.5-14.5) % Plt Count (140-400) K/mcL MPV (9.4-12.4) fL Immature Gran % (0-4) % Seg Neutrophils % % Lymphocytes % % Monocytes % % Eosinophils % % Basophils % % Neutrophils # (1.6-8.9) K/mcL Lymphocytes # (0.6-4.6) K/mcL Monocytes # (0.0-1.3) K/mcL Eosinophils # (0.0-0.6) K/mcL Basophils # (0.0-0.2) K/mcL Sodium 136 (136-145) mEq/L Potassium 4.3 (3.5-5.1) mEq/L Chloride 104 (98-107) mEq/L Carbon Dioxide 25 (23-29) mEq/L BUN 8 (6-20) mg/dL Creatinine 0.88 (0.70-1.30) mg/dL Est GFR ( Amer) > 60 (> 60) Est GFR (Non-Af Amer) > 60 (> 60) BUN/Creatinine Ratio 9 (6-26) Glucose 104 (70-105) mg/dL Calculated Osmolality 281 (280-300) Calcium 9.2 (8.6-10.3) mg/dL Urine Color (Yellow) Urine Clarity (Clear) Urine pH (5.0-8.0) pH Units Ur Specific [place] (1.010-1.025) Urine Protein (Neg-Trace) mg/dL Urine Glucose (UA) (Normal) mg/dL Urine Ketones (Negative) mg/dL Urine Blood (Negative) Urine Nitrite (Negative) Urine Bilirubin (Negative) Urine Urobilinogen (Normal) mg/dL Ur Leukocyte Esterase (Negative) Salicylates < 2.5 L (15.0-30.0) mg/dL Urine Opiates Screen (Eezbis=938) ng/mL Acetaminophen < 10 L (10-20) mcg/mL Ur Barbiturates Screen (Mkiuyl=665) ng/mL Ur Phencyclidine Scrn (Cutoff=25) ng/mL Ur Amphetamines Screen (Exxprk=2016) ng/mL U Benzodiazepines Scrn (Yjsonx=743) ng/mL Urine Cocaine Screen (Cutoff= 300) ng/mL U Marijuana (THC) Screen (Cutoff = 50) ng/mL Ur Drug Screen Interp Ethyl Alcohol 179 H 111 H 55 H (Less than 10) mg/dL Psychiatric Medical Clearance - Medical Clearance Checklist Medical History: No Social History Section defined Current Vitals: Last Vital Signs Temp 99.0 F 06/24/18 13:56 Pulse 112 06/24/18 13:56 Resp 18 06/24/18 13:56 BP 117/64 06/24/18 13:56 Pulse Ox 98 06/24/18 13:56 Psychiatric Lab Panel: Drug Levels and Toxicity 06/24/18 06/24/18 06/24/18 14:09 14:22 17:13 Urine Opiates Screen Negative Acetaminophen < 10 L Ur Barbiturates Screen Negative Ur Phencyclidine Scrn Negative Ur Amphetamines Screen Negative U Benzodiazepines Scrn Negative Urine Cocaine Screen Negative U Marijuana (THC) Screen Negative Ethyl Alcohol 179 H 111 H 06/24/18 20:08 Urine Opiates Screen Acetaminophen Ur Barbiturates Screen Ur Phencyclidine Scrn Ur Amphetamines Screen U Benzodiazepines Scrn Urine Cocaine Screen U Marijuana (THC) Screen Ethyl Alcohol 55 H Abnormal Labs: Abnormal lab results MPV 9.3 fL (9.4-12.4) L 06/24/18 14:22 Ur Specific [place] 1.008 (1.010-1.025) L 06/24/18 13:59 Salicylates < 2.5 mg/dL (15.0-30.0) L 06/24/18 14:22 Acetaminophen < 10 mcg/mL (10-20) L 06/24/18 14:22 Ethyl Alcohol 55 mg/dL (Less than 10) H 06/24/18 20:08 Statement of Medical Clearance: I have evaluated the patient, reviewed diagnostic information, and certify that the patient's medical condition is sufficiently stable [facility] significant risk of deterioration. Attestation Statement - Attestation Attestation: I, Eleuterio Pennington, examined this patient and my medical decision-making was reviewed with the OUTSOLE CUTTER MACHINE/PA/Advanced Practice Nurse/Resident Physician. I agree with the documented findings, disposition and treatment plan as described except to the extent set forth below. 38-year-old male brought to the emergency department for further evaluation of aggressive behavior. Patient is intoxicated the emergency department stating he drink multiple drinks prior to arrival. Patient denies suicidal ideation. He denies visual or auditory hallucinations however he states that he takes a "super drug from the " which makes him hyper vigilant. Patient will be medically cleared and evaluated by behavioral health.
[2018-06-24 14:29] LABS: Bilirubin,Urine Negative (Negative); Blood,Urine Negative (Negative); Clarity,Urine Clear (Clear); Color,Urine Yellow (Yellow); Glucose,Urine (UA) Normal (Normal); Ketones,Urine Negative (Negative); Leukocyte Esterase,Urine Negative (Negative); Nitrite,Urine Negative (Negative); PH,Urine 6.5 pH Units (5.0-8.0); Protein,Urine Negative (Neg-Trace); Specific Gravity,Urine 1.008 (1.010-1.025); Urobilinogen,Urine Normal (Normal)
[2018-06-24] MEDS ORDERED: Water for inj. (sterile) 10 ML IV ONE (14:29)
[2018-06-24 14:39] LABS: Basophils # 0.1 K/mcL (0.0-0.2); Basophils % 0.7 %; Eosinophils # 0.1 K/mcL (0.0-0.6); Eosinophils % 1.5 %; Hematocrit 46.2 % (37.5-50.1); Hemoglobin 15.6 g/dL (12.9-16.9); Immature Granulocytes % 0.5 % (0-4); Lymphocytes # 2.2 K/mcL (0.6-4.6); Lymphocytes % 22.5 %; Mean Corpuscular HGB Conc 33.8 g/dL (31.6-35.5); Mean Corpuscular Hemoglobin 30.5 pg (28.0-33.3); Mean Corpuscular Volume 90.4 fL (83.0-100.0); Mean Platelet Volume 9.3 fL (9.4-12.4); Monocytes # 0.8 K/mcL (0.0-1.3); Monocytes % 8.4 %; Neutrophils # 6.4 K/mcL (1.6-8.9); Platelet Count 281 K/mcL (140-400); Red Blood Count 5.11 M/mcL (4.19-5.50); Red Cell Distribution Width 13.2 % (11.5-14.5); Segmented Neutrophils % 66.4 %
[2018-06-24 14:40] LABS: Amphetamine Screen,Urine Negative ng/mL (Cutoff=1000); Barbiturate Screen,Urine Negative ng/mL (Cutoff=200); Benzodiazepines Screen,Urine Negative ng/mL (Cutoff=200); Cannabinoid Screen,Urine Negative ng/mL (Cutoff = 50); Cocaine Screen,Urine Negative ng/mL (Cutoff= 300); Opiate Screen,Urine Negative ng/mL (Cutoff=300); Phencyclidine Screen,Urine Negative ng/mL (Cutoff=25)
[2018-06-24 15:00] LABS: BUN/Creatinine Ratio 9 (6-26); Blood Urea Nitrogen 8 mg/dL (6-20); Calcium 9.2 mg/dL (8.6-10.3); Carbon Dioxide 25 mEq/L (23-29); Chloride 104 mEq/L (98-107); Ethanol 179 mg/dL (Less than 10); Glucose 104 mg/dL (70-105); Osmolality,Calculated 281 (280-300); Potassium 4.3 mEq/L (3.5-5.1); Salicylate < 2.5 mg/dL (15.0-30.0); Sodium 136 mEq/L (136-145); eGFR For Non-African Americans > 60 (> 60)
[2018-06-24 15:02] LABS: Acetaminophen < 10 mcg/mL (10-20)
--- NOTE | 2018-06-24 20:54 | Emergency Department Note ---
Disposition Clinical Impression: Elevated ETOH level Qualifiers: Blood alcohol level: 120-199 mg/100 ml Qualified Code(s): Y90.6 - Blood alcohol level of 120-199 mg/100 ml Psychosis Qualifiers: Psychosis type: unspecified psychosis type Qualified Code(s): F29 - Unspecified psychosis not due to a substance or known physiological condition Disposition: Admitted As Inpatient Condition: Good Referrals: NONE,PCP [Primary Care Provider] - Forms: ED Satisfaction Letter General Adult HPI - General Chief complaint: ED Psychiatric Symptoms Stated complaint: 1A Time Seen by Provider: 06/24/18 14:00 Source: patient, EMS Limitations: no limitations - History of Present Illness Pain Scale: 0 - Related Data Home Medications Medication Instructions Recorded Confirmed Atorvastatin [Lipitor] 40 mg PO HS 07/06/16 06/14/18 Famotidine [Heartburn Prevention] 20 mg PO DAILY 07/06/16 06/14/18 Lisinopril [Zestril] 20 mg PO DAILY 07/06/16 06/14/18 Ropinirole HCl [Requip] 2 mg PO DAILY 07/06/16 06/14/18 hydrOXYzine pamoate [Hydroxyzine 1 cap PO TID PRN 07/06/16 06/14/18 Pamoate] Aripiprazole Lauroxil [Aristada] 882 mg IM Q4W 06/04/18 06/14/18 Previous Rx's Medication Instructions Recorded Gabapentin [Neurontin] 600 mg PO BID PRN #60 capsule 07/09/16 Venlafaxine XR (24 HR) [Effexor XR] 150 mg PO DAILY #30 cap.er.24h 06/07/18 levoFLOXacin [Levaquin] 500 mg PO DAILY #9 tablet 06/14/18 Allergies Allergy/AdvReac Type Severity Reaction Status Date / Time haloperidol [From Haldol] AdvReac Confusion Verified 05/27/18 17:58 risperidone [From Risperdal] AdvReac Confusion Verified 05/27/18 17:58 Constitutional: Denies: fever Cardiovascular: Denies: chest pain Respiratory: Denies: dyspnea Gastrointestinal: Denies: abdominal pain Genitourinary: Denies: dysuria Psychiatric: Reports: other (Agitation). Denies: suicidal thoughts, homicidal thoughts, auditory hallucinations, visual hallucinations Past Medical History - Past Medical History Medical history: Reports: asthma, hypertension Psychiatric history: Reports: anxiety, depression, prior suicide attempt, previous psychiatric hospitalization - Social History Smoking Status: Current every day smoker Smokeless Tobacco Status: No Alcohol use: Reports: occasionally Drug use: Reports: none Physical Exam - General Limitations: no limitations General appearance: alert, in no apparent distress Course Course Narrative: Patient was taken over at sign out from Dr. Eleuterio Pennington. Awaiting mental health evaluation. Patient has no questions or concerns at this time. - Consultations Consultation #1: The mental health team has been consulted and they have decided to admit the patient for observation. A pink slip has been filled out and added to the file. Vital Signs Temperature 99.0 F 06/24/18 13:56 Pulse Rate 112 06/24/18 13:56 Respiratory Rate 18 06/24/18 13:56 Blood Pressure 117/64 06/24/18 13:56 O2 Sat by Pulse Oximetry 98 06/24/18 13:56 Temperature 99.0 F 06/24/18 13:56 Pulse Rate 112 06/24/18 13:56 Respiratory Rate 18 06/24/18 13:56 Blood Pressure 117/64 06/24/18 13:56 O2 Sat by Pulse Oximetry 98 06/24/18 13:56 Oxygen Delivery Oxygen Delivery Room Air Medical Decision Making - Lab Data Result diagrams: 06/24/18 14:22 06/24/18 14:22 Lab Results 06/24/18 06/24/18 06/24/18 Range/Units 13:59 14:09 14:22 WBC 9.6 (4.3-11.1) K/mcL RBC 5.11 (4.19-5.50) M/mcL Hgb 15.6 (12.9-16.9) g/dL Hct 46.2 (37.5-50.1) % MCV 90.4 (83.0-100.0) fL MCH 30.5 (28.0-33.3) pg MCHC 33.8 (31.6-35.5) g/dL RDW 13.2 (11.5-14.5) % Plt Count 281 (140-400) K/mcL MPV 9.3 L (9.4-12.4) fL Immature Gran % 0.5 (0-4) % Seg Neutrophils % 66.4 % Lymphocytes % 22.5 % Monocytes % 8.4 % Eosinophils % 1.5 % Basophils % 0.7 % Neutrophils # 6.4 (1.6-8.9) K/mcL Lymphocytes # 2.2 (0.6-4.6) K/mcL Monocytes # 0.8 (0.0-1.3) K/mcL Eosinophils # 0.1 (0.0-0.6) K/mcL Basophils # 0.1 (0.0-0.2) K/mcL Sodium (136-145) mEq/L Potassium (3.5-5.1) mEq/L Chloride (98-107) mEq/L Carbon Dioxide (23-29) mEq/L BUN (6-20) mg/dL Creatinine (0.70-1.30) mg/dL Est GFR ( Amer) (> 60) Est GFR (Non-Af Amer) (> 60) BUN/Creatinine Ratio (6-26) Glucose (70-105) mg/dL Calculated Osmolality (280-300) Calcium (8.6-10.3) mg/dL Urine Color Yellow (Yellow) Urine Clarity Clear (Clear) Urine pH 6.5 (5.0-8.0) pH Units Ur Specific [place] 1.008 L (1.010-1.025) Urine Protein Negative (Neg-Trace) mg/dL Urine Glucose (UA) Normal (Normal) mg/dL Urine Ketones Negative (Negative) mg/dL Urine Blood Negative (Negative) Urine Nitrite Negative (Negative) Urine Bilirubin Negative (Negative) Urine Urobilinogen Normal (Normal) mg/dL Ur Leukocyte Esterase Negative (Negative) Salicylates (15.0-30.0) mg/dL Urine Opiates Screen Negative (Fmkbrr=234) ng/mL Acetaminophen (10-20) mcg/mL Ur Barbiturates Screen Negative (Ijrwno=677) ng/mL Ur Phencyclidine Scrn Negative (Cutoff=25) ng/mL Ur Amphetamines Screen Negative (Zlodpm=0491) ng/mL U Benzodiazepines Scrn Negative (Fkwtif=937) ng/mL Urine Cocaine Screen Negative (Cutoff= 300) ng/mL U Marijuana (THC) Screen Negative (Cutoff = 50) ng/mL Ur Drug Screen Interp See Below Ethyl Alcohol (Less than 10) mg/dL 06/24/18 06/24/18 06/24/18 Range/Units 14:22 17:13 20:08 WBC (4.3-11.1) K/mcL RBC (4.19-5.50) M/mcL Hgb (12.9-16.9) g/dL Hct (37.5-50.1) % MCV (83.0-100.0) fL MCH (28.0-33.3) pg MCHC (31.6-35.5) g/dL RDW (11.5-14.5) % Plt Count (140-400) K/mcL MPV (9.4-12.4) fL Immature Gran % (0-4) % Seg Neutrophils % % Lymphocytes % % Monocytes % % Eosinophils % % Basophils % % Neutrophils # (1.6-8.9) K/mcL Lymphocytes # (0.6-4.6) K/mcL Monocytes # (0.0-1.3) K/mcL Eosinophils # (0.0-0.6) K/mcL Basophils # (0.0-0.2) K/mcL Sodium 136 (136-145) mEq/L Potassium 4.3 (3.5-5.1) mEq/L Chloride 104 (98-107) mEq/L Carbon Dioxide 25 (23-29) mEq/L BUN 8 (6-20) mg/dL Creatinine 0.88 (0.70-1.30) mg/dL Est GFR ( Amer) > 60 (> 60) Est GFR (Non-Af Amer) > 60 (> 60) BUN/Creatinine Ratio 9 (6-26) Glucose 104 (70-105) mg/dL Calculated Osmolality 281 (280-300) Calcium 9.2 (8.6-10.3) mg/dL Urine Color (Yellow) Urine Clarity (Clear) Urine pH (5.0-8.0) pH Units Ur Specific [place] (1.010-1.025) Urine Protein (Neg-Trace) mg/dL Urine Glucose (UA) (Normal) mg/dL Urine Ketones (Negative) mg/dL Urine Blood (Negative) Urine Nitrite (Negative) Urine Bilirubin (Negative) Urine Urobilinogen (Normal) mg/dL Ur Leukocyte Esterase (Negative) Salicylates < 2.5 L (15.0-30.0) mg/dL Urine Opiates Screen (Npfbuz=073) ng/mL Acetaminophen < 10 L (10-20) mcg/mL Ur Barbiturates Screen (Vkvyxz=902) ng/mL Ur Phencyclidine Scrn (Cutoff=25) ng/mL Ur Amphetamines Screen (Ihkuuy=3480) ng/mL U Benzodiazepines Scrn (Ledmpa=648) ng/mL Urine Cocaine Screen (Cutoff= 300) ng/mL U Marijuana (THC) Screen (Cutoff = 50) ng/mL Ur Drug Screen Interp Ethyl Alcohol 179 H 111 H 55 H (Less than 10) mg/dL
[2018-06-25] MEDS ORDERED: Nicotine 21 MG PATCH.TD24 TD STA (04:16)
[2018-06-25] MEDS ORDERED: *HR* LORazepam 2 MG/ML VIAL IM PRN (05:40)
[2018-06-25] MEDS ORDERED: MOM Conc 10 ML UD.LIQ PO PRN (05:40)
[2018-06-25] MEDS ORDERED: Acetaminophen 325 MG TABLET PO PRN (05:40)
[2018-06-25] MEDS ORDERED: Mag Hydrox/Al Hydrox/Simeth 30 ML UDC PO PRN (05:40)
[2018-06-25] MEDS ORDERED: hydrOXYzine pamoate 25 MG CAPSULE PO PRN (05:40)
[2018-06-25] MEDS ORDERED: traZODone 50 MG TABLET PO PRN (05:40)
[2018-06-25] MEDS ORDERED: *HR* LORazepam 1 MG TABLET PO PRN (05:40)
[2018-06-25] MEDS ORDERED: Ziprasidone 20 MG CAPSULE PO PRN (09:14)
[2018-06-25] MEDS ORDERED: Ziprasidone injection 20 MG/ML VIAL IM PRN (09:14)
--- NOTE | 2018-06-25 11:29 | Discharge Summary ---
Date of Encounter: 06/25/18 Time of Encounter: 11:27 History of Present Illness Chief complaint: Agitation, psychosis and alcohol intoxication Admitted From: Emergency Dept History of Present Illness: Mr. Ewing is a 38 year old male admitted from the emergency department for agitation alcohol intoxication and schizoaffective disorder. Patient was recently discharged from on 06/07/2018 was diagnosis of schizoaffective disorder and suicidal ideation. UDS was positive for alcohol was a level of 55. Patient reported that he had an argument with staff at [facility] where he gets his medication. On evaluation patient was cooperative and not agitated and interested in getting his medication. He is admitted on an observation status Past Med Surg Social Fam HX - Past Medical History Medical history: asthma, hypertension - Past Psychiatric History Psychiatric history: Reports: bipolar, schizophrenia, previous psychiatric ho spitalization Past psychiatric history details: Recent discharge from [place] [id number] a 06/07/2018 - Social History Smoking Status: Current every day smoker Smokeless Tobacco Status: No Alcohol use: occasionally Drug use: marijuana Medications - Discharge Medications Atorvastatin [Lipitor] 40 mg PO HS 07/06/16 [History] Famotidine [Heartburn Prevention] 20 mg PO DAILY 07/06/16 [History] Lisinopril [Zestril] 20 mg PO DAILY 07/06/16 [History] Ropinirole HCl [Requip] 2 mg PO DAILY 07/06/16 [History] hydrOXYzine pamoate [Hydroxyzine Pamoate] 1 cap PO TID PRN 07/06/16 [History] Gabapentin [Neurontin] 600 mg PO BID PRN #60 capsule 07/09/16 [Rx] Aripiprazole Lauroxil [Aristada] 882 mg IM Q4W 06/04/18 [History] Venlafaxine XR (24 HR) [Effexor XR] 150 mg PO DAILY #30 cap.er.24h 06/07/18 [Rx] levoFLOXacin [Levaquin] 500 mg PO DAILY #9 tablet 06/14/18 [Rx] Allergy/AdvReac Type Severity Reaction Status Date / Time haloperidol [From Haldol] AdvReac Confusion Verified 05/27/18 17:58 risperidone [From Risperdal] AdvReac Confusion Verified 05/27/18 17:58 Review of Systems Psychiatric: Reports: depression, suicidal ideation, irritability, other (Agitation and alcohol intoxication) Exam - HEENT Head exam IM: Present: atraumatic Eye exam IM: Present: EOMI, normal appearance, PERRL ENT exam IM: Present: normal exam - Neurological Neurological exam: Present: CN II-XII intact - Respiratory Respiratory exam IM: Present: CTAB - GI/Abdominal GI/Abdominal exam IM: Present: normal bowel sounds, soft. Absent: tenderness - Extremities Extremities exam IM: Present: full ROM - Skin Skin exam IM: Present: dry, warm - Constitutional Vitals: Temp Pulse Resp BP Pulse Ox 99.0 F 112 18 117/64 98 06/24/18 13:56 06/24/18 13:56 06/24/18 13:56 06/24/18 13:56 06/24/18 13:56 General appearance: age & developmentally appropriate, well-nourished, unkempt, disheveled - Musculoskeletal Gait: normal Station: relaxed Strength & Tone: normal for patient - Psychiatric Patient Orientation: Yes Person, Yes Time, Yes Place Level of alertness: Alert Behavior: calm, cooperative, distractible Psychomotor activity: Normal Eye Contact: Maintains Eye Contact Mood Description: Euthymic/stable, Anxious Affect description: congruent with mood, labile Speech Volume: Normal Speech pattern: normal rate, normal rhythm, normal tone, fluent, spontaneous Language & Vocabulary: consistent with education Thought Process: Linear, Goal Oriented Thought Content: No Suicidal ideation, No Homicidal ideation, No Overt delusions Perceptual Disturbances: No Auditory hallucinations, No Visual hallucinations Attention Span Ability: Capable of Focused Attention Memory Description: Grossly Intact Patient Reliability: Reliable Historian Fund of knowledge: Yes abstraction ability, Yes average, Yes aware of current events Intelligence Estimate: Below Average Judgment: Limited Insight: Partial Results - Drug Levels and Toxicology Drug Levels and Toxicology: Drug Levels and Toxicity 06/24/18 06/24/18 06/24/18 14:09 14:22 17:13 Urine Opiates Screen Negative Acetaminophen < 10 L Ur Barbiturates Screen Negative Ur Phencyclidine Scrn Negative Ur Amphetamines Screen Negative U Benzodiazepines Scrn Negative Urine Cocaine Screen Negative U Marijuana (THC) Screen Negative Ethyl Alcohol 179 H 111 H 06/24/18 20:08 Urine Opiates Screen Acetaminophen Ur Barbiturates Screen Ur Phencyclidine Scrn Ur Amphetamines Screen U Benzodiazepines Scrn Urine Cocaine Screen U Marijuana (THC) Screen Ethyl Alcohol 55 H - Labs Labs: Laboratory Last Values WBC 9.6 K/mcL (4.3-11.1) 06/24/18 14:22 RBC 5.11 M/mcL (4.19-5.50) 06/24/18 14:22 Hgb 15.6 g/dL (12.9-16.9) 06/24/18 14:22 Hct 46.2 % (37.5-50.1) 06/24/18 14:22 MCV 90.4 fL (83.0-100.0) 06/24/18 14:22 MCH 30.5 pg (28.0-33.3) 06/24/18 14:22 MCHC 33.8 g/dL (31.6-35.5) 06/24/18 14:22 RDW 13.2 % (11.5-14.5) 06/24/18 14:22 Plt Count 281 K/mcL (140-400) 06/24/18 14:22 MPV 9.3 fL (9.4-12.4) L 06/24/18 14:22 Immature Gran % 0.5 % (0-4) 06/24/18 14:22 Seg Neutrophils % 66.4 % 06/24/18 14:22 Lymphocytes % 22.5 % 06/24/18 14:22 Monocytes % 8.4 % 06/24/18 14:22 Eosinophils % 1.5 % 06/24/18 14:22 Basophils % 0.7 % 06/24/18 14:22 Neutrophils # 6.4 K/mcL (1.6-8.9) 06/24/18 14:22 Lymphocytes # 2.2 K/mcL (0.6-4.6) 06/24/18 14:22 Monocytes # 0.8 K/mcL (0.0-1.3) 06/24/18 14:22 Eosinophils # 0.1 K/mcL (0.0-0.6) 06/24/18 14:22 Basophils # 0.1 K/mcL (0.0-0.2) 06/24/18 14:22 Sodium 136 mEq/L (136-145) 06/24/18 14:22 Potassium 4.3 mEq/L (3.5-5.1) 06/24/18 14:22 Chloride 104 mEq/L (98-107) 06/24/18 14:22 Carbon Dioxide 25 mEq/L (23-29) 06/24/18 14:22 BUN 8 mg/dL (6-20) 06/24/18 14:22 Creatinine 0.88 mg/dL (0.70-1.30) 06/24/18 14:22 Est GFR ( Amer) > 60 (> 60) 06/24/18 14:22 Est GFR (Non-Af Amer) > 60 (> 60) 06/24/18 14:22 BUN/Creatinine Ratio 9 (6-26) 06/24/18 14:22 Glucose 104 mg/dL (70-105) 06/24/18 14:22 Calculated Osmolality 281 (280-300) 06/24/18 14:22 Calcium 9.2 mg/dL (8.6-10.3) 06/24/18 14:22 Urine Color Yellow (Yellow) 06/24/18 13:59 Urine Clarity Clear (Clear) 06/24/18 13:59 Urine pH 6.5 pH Units (5.0-8.0) 06/24/18 13:59 Ur Specific [place] 1.008 (1.010-1.025) L 06/24/18 13:59 Urine Protein Negative mg/dL (Neg-Trace) 06/24/18 13:59 Urine Glucose (UA) Normal mg/dL (Normal) 06/24/18 13:59 Urine Ketones Negative mg/dL (Negative) 06/24/18 13:59 Urine Blood Negative (Negative) 06/24/18 13:59 Urine Nitrite Negative (Negative) 06/24/18 13:59 Urine Bilirubin Negative (Negative) 06/24/18 13:59 Urine Urobilinogen Normal mg/dL (Normal) 06/24/18 13:59 Ur Leukocyte Esterase Negative (Negative) 06/24/18 13:59 Salicylates < 2.5 mg/dL (15.0-30.0) L 06/24/18 14:22 Urine Opiates Screen Negative ng/mL (Tjvwrj=526) 06/24/18 14:09 Acetaminophen < 10 mcg/mL (10-20) L 06/24/18 14:22 Ur Barbiturates Screen Negative ng/mL (Xexgya=999) 06/24/18 14:09 Ur Phencyclidine Scrn Negative ng/mL (Cutoff=25) 06/24/18 14:09 Ur Amphetamines Screen Negative ng/mL (Ktntmw=[id number]) 06/24/18 14:09 U Benzodiazepines Scrn Negative ng/mL (Uwavek=069) 06/24/18 14:09 Urine Cocaine Screen Negative ng/mL (Cutoff= 300) 06/24/18 14:09 U Marijuana (THC) Screen Negative ng/mL (Cutoff = 50) 06/24/18 14:09 Ur Drug Screen Interp See Below 06/24/18 14:09 Ethyl Alcohol 55 mg/dL (Less than 10) H 06/24/18 20:08 Diagnosis - Discharge Diagnosis (1) Schizoaffective disorder Status: Chronic Qualifiers: Schizoaffective disorder type: bipolar Qualified Code(s): F25.0 - Schizoaffective disorder, bipolar type Assessment and Plan - Patient/Caregiver Discharge Instructions Activity: resume usual activities as tolerated Diet: regular diet - Follow up Plan Follow up with: [facility] [Outside] - 07/01/18 10:45 am (The above appointment is with Salome Graham for medication management ) NONE,PCP [Primary Care Provider] - Functional capacity at discharge: independent ambulation Overall status at discharge: Stable Disposition: Home, Self-Care Provider Date of admission: 06/25/18 05:37 Primary care physician: PCP NONE Discharging clinician: Nicolas Chery [facility] Course Hospital course: Mr. Ewing is a 38 year old male admitted for agitation suicidal ideation and noncompliance with medication. Patient was started on his medication after verification he participated in some activities he was cooperative medication compliant. Reported improved sleep he denied any suicidal ideation he denied any hallucinations. On discharge he was medically stable, medication compliant, not depressed or manic, not psychotic. He is discharged in stable condition. - Time Spent with Patient Total time spent providing and/or coordinating discharge services: Less than 30 minutes Procedures - Procedures Procedures: Medication Management, Crisis Stabilization, Supportive Therapy, Group Therapy, Psychoeducational Therapy Quality - Multiple Antipsychotics Patient discharged on 2 or more antipsychotic medications: No
[2018-06-25] MEDS ORDERED: Gabapentin 300 MG CAPSULE PO PRN (18:08)
[2018-06-25] MEDS ORDERED: (Aripiprazole Lauroxil [Aristada] 882 MG) IM SCH (18:15)
[2018-06-25] MEDS: rOPINIRole 1 MG TABLET PO SCH (21:14)
[2018-06-25] MEDS: Lisinopril 20 MG TABLET PO SCH (21:14)
[2018-06-25] MEDS: Famotidine 20 MG TABLET PO SCH (21:14)
[2018-06-25] MEDS: Venlafaxine XR (24 HR) 75 MG CAP.ER.24H PO SCH (21:16)
[2018-06-26] MEDS ORDERED: traZODone 50 MG TABLET PO ONE (01:42)
[2018-06-26] MEDS ORDERED: Cholecalciferol (D-3) 1,000 UNIT TABLET PO SCH (09:00)
[2018-06-26] MEDS: Famotidine 20 MG TABLET PO SCH (09:11)
[2018-06-26] MEDS: Lisinopril 20 MG TABLET PO SCH (09:11)
[2018-06-26] MEDS: Venlafaxine XR (24 HR) 75 MG CAP.ER.24H PO SCH (09:11)
[2018-06-26] MEDS: rOPINIRole 1 MG TABLET PO SCH (09:11)
[2018-06-26 09:52] VITALS: BP 118/70
[2018-07-11] MEDS ORDERED: (Aripiprazole Lauroxil [Aristada] 882 MG) IM SCH (09:00)
== END 2018-06-26 14:10 | disposition home or self-care (01) ==
LOC: 1ANU 13:48 → EMEROOARM 13:48 → 1ANU 06-25 07:54
PROVIDERS: ADMIT Psychiatry & Neurology Psychiatry; ATTEND Psychiatry & Neurology Psychiatry

== ENCOUNTER 2020-10-04 23:18 | Observation (INO) ==
[2020-10-04 23:49] LABS: Bacteria,Urine Few per hpf (None-Few); Basophils # 0.1 K/mcL (0.0-0.2); Basophils % 0.5 %; Bilirubin,Urine Negative (Negative); Blood,Urine Negative (Negative); Clarity,Urine Clear (Clear); Color,Urine Yellow (Yellow); Eosinophils # 0.1 K/mcL (0.0-0.6); Eosinophils % 0.7 %; Glucose,Urine (UA) Normal (Normal); Hematocrit 49.2 % (37.5-50.1); Hemoglobin 16.6 g/dL (12.9-16.9); Immature Granulocytes % 0.6 % (0-4); Ketones,Urine Negative (Negative); Leukocyte Esterase,Urine Negative (Negative); Lymphocytes # 2.5 K/mcL (0.6-4.6); Lymphocytes % 21.6 %; Mean Corpuscular HGB Conc 33.7 g/dL (31.6-35.5); Mean Corpuscular Hemoglobin 30.2 pg (28.0-33.3); Mean Corpuscular Volume 89.5 fL (83.0-100.0); Mean Platelet Volume 9.2 fL (9.4-12.4); Monocytes # 0.9 K/mcL (0.0-1.3); Monocytes % 7.4 %; Mucus,Urine Few per lpf (None-Few); Neutrophils # 7.9 K/mcL (1.6-8.9); Nitrite,Urine Negative (Negative); PH,Urine 7.5 pH Units (5.0-8.0); Platelet Count 282 K/mcL (140-400); Protein,Urine 50 mg/dL (Neg-Trace); RBC,Urine 0-3 per hpf (0-3); Red Cell Distribution Width 13.6 % (11.5-14.5); Segmented Neutrophils % 69.2 %; Specific Gravity,Urine 1.029 (1.010-1.025); Urobilinogen,Urine Normal (Normal); WBC,Urine 0-3 per hpf (0-3); White Blood Count 11.4 K/mcL (4.3-11.1)
[2020-10-04 23:58] LABS: Estimated Average Glucose 105 mg/dl; Hemoglobin A1C 5.3 %
[2020-10-05 00:06] LABS: Amphetamine Screen,Urine Negative ng/mL (Cutoff=1000); Barbiturate Screen,Urine Negative ng/mL (Cutoff=200); Benzodiazepines Screen,Urine Negative ng/mL (Cutoff=200); Cannabinoid Screen,Urine Positive ng/mL (Cutoff = 50); Cocaine Screen,Urine Negative ng/mL (Cutoff= 300); Opiate Screen,Urine Negative ng/mL (Cutoff=300); Phencyclidine Screen,Urine Negative ng/mL (Cutoff=25)
[2020-10-05 00:13] LABS: Acetaminophen < 10 mcg/mL (10-20); BUN/Creatinine Ratio 11 (6-26); Blood Urea Nitrogen 12 mg/dL (6-20); Calcium 8.9 mg/dL (8.6-10.3); Carbon Dioxide 23 mEq/L (23-29); Chloride 108 mEq/L (98-107); Ethanol < 10 mg/dL (Less than 10); Glucose 112 mg/dL (70-105); Osmolality,Calculated 291 (280-300); Potassium 3.4 mEq/L (3.5-5.1); Salicylate < 2.5 mg/dL (15.0-30.0); Sodium 140 mEq/L (136-145); eGFR For African Americans > 60 (> 60); eGFR For Non-African Americans > 60 (> 60)
[2020-10-05] MEDS ORDERED: Acetaminophen 325 MG TABLET PO PRN (02:38)
[2020-10-05] MEDS ORDERED: *HR* LORazepam 1 MG TABLET PO PRN (02:38)
[2020-10-05] MEDS ORDERED: QUEtiapine Fumarate 25 MG TABLET PO PRN (02:38)
[2020-10-05] MEDS ORDERED: hydrOXYzine pamoate 25 MG CAPSULE PO PRN (02:38)
[2020-10-05] MEDS ORDERED: Mag Hydrox/Al Hydrox/Simeth 30 ML UDC PO PRN (02:38)
[2020-10-05] MEDS ORDERED: MOM Conc 10 ML UD.LIQ PO PRN (02:38)
[2020-10-05] MEDS ORDERED: *HR* LORazepam 2 MG/ML VIAL IM PRN (02:38)
[2020-10-05] MEDS ORDERED: Ziprasidone 20 MG in Water for inj. (sterile) 1 ML IM PRN (02:55)
[2020-10-05] MEDS ORDERED: OLANZapine 5 MG TAB.RAPDIS PO PRN (02:56)
[2020-10-05] MEDS: Nicotine 21 MG PATCH.TD24 TD SCH (09:54)
[2020-10-05] MEDS: OXcarbazepine 150 MG TABLET PO SCH ×2 (11:56→20:36)
[2020-10-05] MEDS: ARIPiprazole 10 MG TABLET PO SCH (11:56)
[2020-10-05] MEDS: Famotidine 20 MG TABLET PO SCH (11:56)
[2020-10-05] MEDS: Gabapentin 300 MG CAPSULE PO SCH (20:34)
[2020-10-05] MEDS ORDERED: rOPINIRole 1 MG TABLET PO SCH (21:00)
[2020-10-05] MEDS ORDERED: chlorproMAZINE 25 MG TABLET PO SCH ×2 (21:00)
[2020-10-06] MEDS: OXcarbazepine 150 MG TABLET PO SCH (08:55)
[2020-10-06] MEDS: Famotidine 20 MG TABLET PO SCH (08:55)
[2020-10-06] MEDS: Gabapentin 300 MG CAPSULE PO SCH (08:55)
[2020-10-06] MEDS: Nicotine 21 MG PATCH.TD24 TD SCH (08:55)
[2020-10-06] MEDS: ARIPiprazole 10 MG TABLET PO SCH (08:55)
[2020-10-06 09:23] VITALS: BP 147/98
== END 2020-10-06 09:55 | disposition home or self-care (01) ==
LOC: EMEROOARM 23:18 → 1ANU 10-05 02:37 → INTOOBSV 10-05 02:37 → 1ANU 10-05 02:54
PROVIDERS: ADMIT Psychiatry & Neurology Psychiatry; ATTEND Psychiatry & Neurology Psychiatry

== ENCOUNTER 2020-10-20 17:28 | Inpatient (IN) ==
[2020-10-20] MEDS ORDERED: 0.9 % Sodium Chloride 2,000 ML IV ONE (17:56)
[2020-10-20 18:03] LABS: Basophils # 0.1 K/mcL (0.0-0.2); Basophils % 0.5 %; Eosinophils # 0.1 K/mcL (0.0-0.6); Eosinophils % 1.2 %; Hematocrit 50.6 % (37.5-50.1); Hemoglobin 17.3 g/dL (12.9-16.9); Immature Granulocytes % 0.6 % (0-4); Lymphocytes # 1.8 K/mcL (0.6-4.6); Lymphocytes % 18.7 %; Mean Corpuscular HGB Conc 34.2 g/dL (31.6-35.5); Mean Corpuscular Hemoglobin 30.6 pg (28.0-33.3); Mean Corpuscular Volume 89.4 fL (83.0-100.0); Mean Platelet Volume 9.4 fL (9.4-12.4); Monocytes # 0.7 K/mcL (0.0-1.3); Monocytes % 6.8 %; Neutrophils # 7.1 K/mcL (1.6-8.9); Platelet Count 260 K/mcL (140-400); Red Blood Count 5.66 M/mcL (4.19-5.50); Red Cell Distribution Width 13.2 % (11.5-14.5); Segmented Neutrophils % 72.2 %; White Blood Count 9.8 K/mcL (4.3-11.1)
[2020-10-20 18:22] LABS: Acetaminophen < 10 mcg/mL (10-20); BUN/Creatinine Ratio 11 (6-26); Blood Urea Nitrogen 12 mg/dL (6-20); Calcium 9.3 mg/dL (8.6-10.3); Carbon Dioxide 21 mEq/L (23-29); Chloride 105 mEq/L (98-107); Chol/HDL Ratio 5.3 (0-4.9); Cholesterol 184 mg/dL (< 200); Ethanol < 10 mg/dL (Less than 10); Glucose 128 mg/dL (70-105); HDL Cholesterol 35 mg/dL (40-59); LDL Cholesterol,Calculated 120 mg/dL (< 100); Osmolality,Calculated 289 (280-300); Potassium 3.4 mEq/L (3.5-5.1); Salicylate < 2.5 mg/dL (15.0-30.0); Sodium 139 mEq/L (136-145); Triglycerides 144 mg/dL (< 150); eGFR For African Americans > 60 (> 60); eGFR For Non-African Americans > 60 (> 60)
[2020-10-20 18:33] LABS: Amphetamine Screen,Urine Negative ng/mL (Cutoff=1000); Barbiturate Screen,Urine Negative ng/mL (Cutoff=200); Benzodiazepines Screen,Urine Negative ng/mL (Cutoff=200); Cannabinoid Screen,Urine Negative ng/mL (Cutoff = 50); Cocaine Screen,Urine Negative ng/mL (Cutoff= 300); Opiate Screen,Urine Negative ng/mL (Cutoff=300); Phencyclidine Screen,Urine Negative ng/mL (Cutoff=25)
[2020-10-20 18:44] LABS: Bacteria,Urine Few per hpf (None-Few); Bilirubin,Urine Negative (Negative); Blood,Urine Negative (Negative); Clarity,Urine Clear (Clear); Color,Urine Yellow (Yellow); Glucose,Urine (UA) Normal (Normal); Ketones,Urine 10 mg/dL (Negative); Leukocyte Esterase,Urine Negative (Negative); Mucus,Urine Few per lpf (None-Few); Nitrite,Urine Negative (Negative); Protein,Urine 70 mg/dL (Neg-Trace); RBC,Urine 0-3 per hpf (0-3); Specific Gravity,Urine > 1.030 (1.010-1.025); Squamous Epithelial Cell,Urine Few per hpf (None-Few); WBC,Urine 0-3 per hpf (0-3)
[2020-10-20 18:51] LABS: Estimated Average Glucose 108 mg/dl; Hemoglobin A1C 5.4 %
[2020-10-20] MEDS ORDERED: *HR* LORazepam 1 MG TABLET PO ONE (20:55)
[2020-10-20] MEDS ORDERED: Diclofenac Sodium (DR) 50 MG TABLET.DR PO PRN (21:19)
[2020-10-20] MEDS ORDERED: *HR* LORazepam 2 MG/ML VIAL IM PRN (21:22)
[2020-10-20] MEDS ORDERED: hydrOXYzine pamoate 25 MG CAPSULE PO PRN (21:22)
[2020-10-20] MEDS ORDERED: *HR* LORazepam 1 MG TABLET PO PRN (21:22)
[2020-10-20] MEDS ORDERED: Mag Hydrox/Al Hydrox/Simeth 30 ML UDC PO PRN (21:22)
[2020-10-20] MEDS ORDERED: MOM Conc 10 ML UD.LIQ PO PRN (21:22)
[2020-10-20] MEDS ORDERED: Acetaminophen 325 MG TABLET PO PRN (21:22)
[2020-10-20] MEDS ORDERED: traZODone 50 MG TABLET PO PRN (21:22)
[2020-10-20] MEDS ORDERED: WATER FOR INJ IM PRN (21:25)
[2020-10-20] MEDS ORDERED: ZIPRASIDONE IM PRN (21:25)
[2020-10-20] MEDS ORDERED: Ziprasidone 80 MG CAPSULE PO PRN (21:25)
[2020-10-20] MEDS ORDERED: ARIPiprazole 400 MG SUSER.SYR IM SCH (21:30)
[2020-10-20] MEDS ORDERED: Ziprasidone 20 MG CAPSULE PO PRN (22:13)
[2020-10-20] MEDS: Gabapentin 300 MG CAPSULE PO SCH (22:18)
[2020-10-20] MEDS: Doxycycline 100 MG CAPSULE PO SCH (22:18)
[2020-10-20] MEDS: rOPINIRole 1 MG TABLET PO SCH (22:18)
[2020-10-20] MEDS: OXcarbazepine 150 MG TABLET PO SCH (22:18)
[2020-10-20] MEDS: chlorproMAZINE 25 MG TABLET PO SCH (22:18)
[2020-10-21] MEDS: OXcarbazepine 150 MG TABLET PO SCH ×2 (08:45→21:01)
[2020-10-21] MEDS: Famotidine 20 MG TABLET PO SCH (08:45)
[2020-10-21] MEDS: Doxycycline 100 MG CAPSULE PO SCH ×2 (08:46→21:01)
[2020-10-21] MEDS: ARIPiprazole 10 MG TABLET PO SCH (08:48)
[2020-10-21] MEDS: Gabapentin 300 MG CAPSULE PO SCH ×2 (08:49→21:01)
[2020-10-21] MEDS ORDERED: ARIPiprazole 400 MG SUSER.SYR IM ONE (09:00)
[2020-10-21] MEDS: Nicotine 21 MG PATCH.TD24 TD SCH (09:56)
[2020-10-21] MEDS: chlorproMAZINE 25 MG TABLET PO SCH (21:01)
[2020-10-21] MEDS: rOPINIRole 1 MG TABLET PO SCH (21:01)
[2020-10-22] MEDS: Famotidine 20 MG TABLET PO SCH (09:20)
[2020-10-22] MEDS: Doxycycline 100 MG CAPSULE PO SCH (09:20)
[2020-10-22] MEDS: Gabapentin 300 MG CAPSULE PO SCH (09:22)
[2020-10-22] MEDS: OXcarbazepine 150 MG TABLET PO SCH (09:22)
[2020-10-22] MEDS: ARIPiprazole 10 MG TABLET PO SCH (09:22)
[2020-10-22] MEDS: Nicotine 21 MG PATCH.TD24 TD SCH (09:23)
[2020-10-22 09:24] VITALS: BP 133/91
== END 2020-10-22 13:00 | disposition home or self-care (01) | DRG 885 ==
LOC: EMEROOARM 17:28 → 1ANU 21:18
PROVIDERS: ADMIT Psychiatry & Neurology Psychiatry; ATTEND Psychiatry & Neurology Psychiatry

== ENCOUNTER 2021-02-27 13:07 | Observation (INO) ==
[2021-02-27 13:50] LABS: Bilirubin,Urine Negative (Negative); Blood,Urine Negative (Negative); Clarity,Urine Clear (Clear); Color,Urine Yellow (Yellow); Glucose,Urine (UA) Normal (Normal); Ketones,Urine Trace mg/dL (Negative); Leukocyte Esterase,Urine Negative (Negative); Nitrite,Urine Negative (Negative); Protein,Urine Trace mg/dL (Neg-Trace); Specific Gravity,Urine 1.022 (1.010-1.025); Urobilinogen,Urine Normal (Normal)
[2021-02-27 14:04] LABS: Basophils # 0.1 K/mcL (0.0-0.2); Basophils % 0.6 %; Eosinophils # 0.1 K/mcL (0.0-0.6); Eosinophils % 0.8 %; Hematocrit 52.8 % (37.5-50.1); Hemoglobin 18.2 g/dL (12.9-16.9); Immature Granulocytes % 0.6 % (0-4); Lymphocytes # 1.4 K/mcL (0.6-4.6); Lymphocytes % 16.3 %; Mean Corpuscular HGB Conc 34.5 g/dL (31.6-35.5); Mean Corpuscular Hemoglobin 30.8 pg (28.0-33.3); Mean Corpuscular Volume 89.3 fL (83.0-100.0); Mean Platelet Volume 9.3 fL (9.4-12.4); Monocytes # 0.5 K/mcL (0.0-1.3); Monocytes % 5.8 %; Neutrophils # 6.3 K/mcL (1.6-8.9); Platelet Count 225 K/mcL (140-400); Red Blood Count 5.91 M/mcL (4.19-5.50); Red Cell Distribution Width 12.8 % (11.5-14.5); Segmented Neutrophils % 75.9 %; White Blood Count 8.3 K/mcL (4.3-11.1)
[2021-02-27 14:16] LABS: Amphetamine Screen,Urine Negative ng/mL (Cutoff=1000); Barbiturate Screen,Urine Negative ng/mL (Cutoff=200); Benzodiazepines Screen,Urine Negative ng/mL (Cutoff=200); Cannabinoid Screen,Urine Negative ng/mL (Cutoff = 50); Cocaine Screen,Urine Negative ng/mL (Cutoff= 300); Opiate Screen,Urine Negative ng/mL (Cutoff=300); Phencyclidine Screen,Urine Negative ng/mL (Cutoff=25)
[2021-02-27 14:24] LABS: Acetaminophen < 10 mcg/mL (10-20); BUN/Creatinine Ratio 12 (6-26); Blood Urea Nitrogen 13 mg/dL (6-20); Calcium 9.4 mg/dL (8.6-10.3); Carbon Dioxide 24 mEq/L (23-29); Chloride 104 mEq/L (98-107); Chol/HDL Ratio 6.5 (0-4.9); Cholesterol 188 mg/dL (< 200); Ethanol < 10 mg/dL (Less than 10); Glucose 111 mg/dL (70-105); HDL Cholesterol 29 mg/dL (40-59); LDL Cholesterol,Calculated 130 mg/dL (< 100); Osmolality,Calculated 283 (280-300); Potassium 3.8 mEq/L (3.5-5.1); Salicylate < 2.5 mg/dL (15.0-30.0); Sodium 136 mEq/L (136-145); Triglycerides 146 mg/dL (< 150); eGFR For African Americans > 60 (> 60); eGFR For Non-African Americans > 60 (> 60)
[2021-02-27 14:54] LABS: Estimated Average Glucose 108 mg/dl; Hemoglobin A1C 5.4 %
[2021-02-27 15:04] LABS: Adenovirus Not Detected (Not Detect); Bordetella Pertussis Not Detected (Not Detect); Chlamydophila pneumoniae Not Detected (Not Detect); Coronavirus 229E Not Detected (Not Detect); Coronavirus HKU1 Not Detected (Not Detect); Coronavirus NL63 Not Detected (Not Detect); Coronavirus OC43 Not Detected (Not Detect); Human Metapneumovirus Not Detected (Not Detect); Human Rhinovirus/Enterovirus Not Detected (Not Detect); Influenza A Subtype 2009 H1 Not Detected (Not Detect); Influenza B Not Detected (Not Detect); Mycoplasma pneumoniae Not Detected (Not Detect); Parainfluenza Virus 1 Not Detected (Not Detect); Parainfluenza Virus 2 Not Detected (Not Detect); Parainfluenza Virus 3 Not Detected (Not Detect); Parainfluenza Virus 4 Not Detected (Not Detect); Respiratory Syncytial Virus Not Detected (Not Detect); SARS-CoV-2 Not Detected (Not Detect)
[2021-02-27] MEDS ORDERED: *HR* LORazepam 2 MG/ML VIAL IM PRN (17:00)
[2021-02-27] MEDS ORDERED: *HR* LORazepam 1 MG TABLET PO PRN (17:00)
[2021-02-27] MEDS ORDERED: traZODone 50 MG TABLET PO PRN (17:00)
[2021-02-27] MEDS ORDERED: haloperidoL 5 MG TABLET PO PRN (17:00)
[2021-02-27] MEDS ORDERED: MOM Conc 10 ML UD.LIQ PO PRN (17:00)
[2021-02-27] MEDS ORDERED: Mag Hydrox/Al Hydrox/Simeth 30 ML UDC PO PRN (17:00)
[2021-02-27] MEDS ORDERED: Acetaminophen 325 MG TABLET PO PRN (17:00)
[2021-02-27] MEDS ORDERED: QUEtiapine Fumarate 25 MG TABLET PO PRN (17:00)
[2021-02-27] MEDS ORDERED: hydrOXYzine pamoate 25 MG CAPSULE PO PRN ×2 (17:00→17:05)
[2021-02-27] MEDS ORDERED: Nicotine 2 MG GUM BC PRN (17:00)
[2021-02-27] MEDS ORDERED: Haloperidol Lactate 5 MG/ML VIAL IM PRN (17:00)
[2021-02-27] MEDS ORDERED: Ibuprofen 400 MG TABLET PO PRN (17:00)
[2021-02-27] MEDS ORDERED: Gabapentin 300 MG CAPSULE PO PRN (17:05)
[2021-02-27] MEDS ORDERED: chlorproMAZINE 25 MG TABLET PO SCH (21:00)
[2021-02-27] MEDS: *HR* LORazepam 1 MG TABLET PO SCH (21:26)
[2021-02-27] MEDS: OXcarbazepine 150 MG TABLET PO SCH (21:26)
[2021-02-28] MEDS ORDERED: Nicotine 21 MG PATCH.TD24 TD SCH (09:00)
[2021-02-28] MEDS ORDERED: Famotidine 20 MG TABLET PO SCH (09:00)
[2021-02-28] MEDS: OXcarbazepine 150 MG TABLET PO SCH (09:39)
[2021-02-28] MEDS: *HR* LORazepam 1 MG TABLET PO SCH (09:39)
[2021-02-28 10:13] VITALS: BP 141/89
== END 2021-02-28 14:35 | disposition home or self-care (01) ==
LOC: EMEROOARM 13:07 → 1ANU 13:07
PROVIDERS: ADMIT Psychiatry & Neurology Forensic Psychiatry; ATTEND Psychiatry & Neurology Forensic Psychiatry

== ENCOUNTER 2021-03-26 01:38 | Inpatient (IN) ==
[2021-03-26 03:41] LABS: Bilirubin,Urine Negative (Negative); Blood,Urine Negative (Negative); Clarity,Urine Clear (Clear); Color,Urine Yellow (Yellow); Glucose,Urine (UA) Normal (Normal); Ketones,Urine Negative (Negative); Leukocyte Esterase,Urine Negative (Negative); Mucus,Urine Few per lpf (None-Few); Nitrite,Urine Negative (Negative); PH,Urine 6.5 pH Units (5.0-8.0); Protein,Urine 30 mg/dL (Neg-Trace); Squamous Epithelial Cell,Urine Few per hpf (None-Few)
[2021-03-26 03:42] LABS: Basophils # 0.1 K/mcL (0.0-0.2); Basophils % 0.5 %; Eosinophils # 0.1 K/mcL (0.0-0.6); Eosinophils % 1.2 %; Hematocrit 48.6 % (37.5-50.1); Hemoglobin 16.3 g/dL (12.9-16.9); Immature Granulocytes % 0.7 % (0-4); Lymphocytes # 2.6 K/mcL (0.6-4.6); Lymphocytes % 21.7 %; Mean Corpuscular HGB Conc 33.5 g/dL (31.6-35.5); Mean Corpuscular Hemoglobin 30.1 pg (28.0-33.3); Mean Corpuscular Volume 89.7 fL (83.0-100.0); Mean Platelet Volume 9.5 fL (9.4-12.4); Monocytes # 0.8 K/mcL (0.0-1.3); Monocytes % 6.7 %; Neutrophils # 8.3 K/mcL (1.6-8.9); Platelet Count 253 K/mcL (140-400); Red Blood Count 5.42 M/mcL (4.19-5.50); Red Cell Distribution Width 13.3 % (11.5-14.5); Segmented Neutrophils % 69.2 %
[2021-03-26 03:51] LABS: Amphetamine Screen,Urine Negative ng/mL (Cutoff=1000); Barbiturate Screen,Urine Negative ng/mL (Cutoff=200); Benzodiazepines Screen,Urine Negative ng/mL (Cutoff=200); Cannabinoid Screen,Urine Positive ng/mL (Cutoff = 50); Cocaine Screen,Urine Negative ng/mL (Cutoff= 300); Opiate Screen,Urine Negative ng/mL (Cutoff=300); Phencyclidine Screen,Urine Negative ng/mL (Cutoff=25)
[2021-03-26 04:03] LABS: Acetaminophen < 10 mcg/mL (10-20); Alanine Aminotransferase 14 Units/L (7-52); Albumin 4.2 g/dL (3.5-5.7); Albumin/Globulin Ratio 1.7 (1.1-2.2); Alkaline Phosphatase 90 Units/L (34-104); Aspartate Amino Transferase 14 Units/L (13-39); BUN/Creatinine Ratio 8 (6-26); Bilirubin,Direct 0.1 mg/dL (0.0-0.2); Bilirubin,Indirect 0.4 mg/dL (0.0-1.0); Bilirubin,Total 0.5 mg/dL (0.3-1.0); Blood Urea Nitrogen 9 mg/dL (6-20); Calcium 9.1 mg/dL (8.6-10.3); Carbon Dioxide 25 mEq/L (23-29); Chloride 108 mEq/L (98-107); Ethanol < 10 mg/dL (Less than 10); Globulin 2.5 g/dL (2.4-3.5); Glucose 95 mg/dL (70-105); Osmolality,Calculated 290 (280-300); Salicylate < 2.5 mg/dL (15.0-30.0); Sodium 141 mEq/L (136-145); Total Protein 6.7 g/dL (6.4-8.9); eGFR For African Americans > 60 (> 60); eGFR For Non-African Americans > 60 (> 60)
[2021-03-26 07:42] LABS: Influenza A PCR Negative (Negative); Influenza B PCR Negative (Negative); Resp. Syncytial Virus PCR Negative (Negative)
[2021-03-26 07:45] LABS: SARS-CoV-2 by PCR (In House) Negative (Negative)
[2021-03-26] MEDS ORDERED: hydrOXYzine pamoate 25 MG CAPSULE PO PRN (09:54)
[2021-03-26] MEDS ORDERED: Mag Hydrox/Al Hydrox/Simeth 30 ML UDC PO PRN (09:54)
[2021-03-26] MEDS ORDERED: *HR* LORazepam 1 MG TABLET PO PRN (09:54)
[2021-03-26] MEDS ORDERED: *HR* LORazepam 2 MG/ML VIAL IM PRN (09:54)
[2021-03-26] MEDS ORDERED: MOM Conc 10 ML UD.LIQ PO PRN (09:54)
[2021-03-26] MEDS ORDERED: Acetaminophen 325 MG TABLET PO PRN (09:54)
[2021-03-26] MEDS ORDERED: QUEtiapine Fumarate 25 MG TABLET PO PRN (09:54)
[2021-03-26] MEDS ORDERED: chlorproMAZINE 25 MG TABLET PO PRN (09:57)
[2021-03-26] MEDS ORDERED: ChlorproMAZINE 25 MG/ML AMPUL IM PRN (09:58)
[2021-03-26] MEDS: Nicotine 21 MG PATCH.TD24 TD SCH ×2 (16:10→19:35)
[2021-03-26] MEDS: OXcarbazepine 150 MG TABLET PO SCH (20:38)
[2021-03-26] MEDS: Gabapentin 300 MG CAPSULE PO SCH (20:39)
[2021-03-26] MEDS ORDERED: cloZAPine 25 MG TABLET PO SCH (21:00)
[2021-03-27] MEDS: Nicotine 21 MG PATCH.TD24 TD SCH (08:04)
[2021-03-27] MEDS: OXcarbazepine 150 MG TABLET PO SCH (08:05)
[2021-03-27] MEDS: Gabapentin 300 MG CAPSULE PO SCH (08:06)
[2021-03-27] MEDS ORDERED: Famotidine 20 MG TABLET PO SCH (09:00)
[2021-03-27] MEDS ORDERED: lisinopriL 10 MG TABLET PO SCH (09:00)
[2021-03-27 10:33] VITALS: BP 134/84; PULSE 66; TEMP 97.1; O2SAT 99
[2021-03-27] MEDS ORDERED: ARIPiprazole 400 MG SUSER.SYR IM ONE (12:51)
== END 2021-03-27 13:55 | disposition home or self-care (01) | DRG 885 ==
LOC: EMEROOARM 01:38 → 1ANU 08:47
PROVIDERS: ADMIT Psychiatry & Neurology Psychiatry; ATTEND Psychiatry & Neurology Psychiatry

== ENCOUNTER 2021-10-17 19:08 | Observation (INO) ==
[2021-10-17 20:56] LABS: Basophils # 0.1 K/mcL (0.0-0.2); Basophils % 0.5 %; Eosinophils # 0.2 K/mcL (0.0-0.6); Eosinophils % 1.5 %; Hematocrit 52.9 % (37.5-50.1); Hemoglobin 18.5 g/dL (12.9-16.9); Immature Granulocytes % 0.6 % (0-4); Lymphocytes # 2.9 K/mcL (0.6-4.6); Lymphocytes % 26.5 %; Mean Corpuscular Hemoglobin 31.2 pg (28.0-33.3); Mean Corpuscular Volume 89.2 fL (83.0-100.0); Mean Platelet Volume 9.9 fL (9.4-12.4); Monocytes # 0.6 K/mcL (0.0-1.3); Monocytes % 5.8 %; Neutrophils # 7.2 K/mcL (1.6-8.9); Platelet Count 249 K/mcL (140-400); Red Blood Count 5.93 M/mcL (4.19-5.50); Red Cell Distribution Width 12.9 % (11.5-14.5); Segmented Neutrophils % 65.1 %; White Blood Count 11.1 K/mcL (4.3-11.1)
[2021-10-17 21:07] LABS: Amphetamine Screen,Urine Negative ng/mL (Cutoff=1000); Barbiturate Screen,Urine Negative ng/mL (Cutoff=200); Benzodiazepines Screen,Urine Negative ng/mL (Cutoff=200); Cannabinoid Screen,Urine Negative ng/mL (Cutoff = 50); Cocaine Screen,Urine Negative ng/mL (Cutoff= 300); Opiate Screen,Urine Negative ng/mL (Cutoff=300); Phencyclidine Screen,Urine Negative ng/mL (Cutoff=25)
[2021-10-17 21:13] LABS: Acetaminophen < 10 mcg/mL (10-20); BUN/Creatinine Ratio 10 (6-26); Blood Urea Nitrogen 10 mg/dL (6-20); Calcium 9.5 mg/dL (8.6-10.3); Carbon Dioxide 26 mEq/L (23-29); Chloride 104 mEq/L (98-107); Ethanol < 10 mg/dL (Less than 10); Glucose 87 mg/dL (70-105); Osmolality,Calculated 282 (280-300); Potassium 3.8 mEq/L (3.5-5.1); Salicylate < 2.5 mg/dL (15.0-30.0); Sodium 137 mEq/L (136-145); eGFR For African Americans > 60 (> 60); eGFR For Non-African Americans > 60 (> 60)
[2021-10-17 21:22] LABS: Bilirubin,Urine Negative (Negative); Blood,Urine Negative (Negative); Clarity,Urine Clear (Clear); Color,Urine Light-Yellow (Yellow); Glucose,Urine (UA) Normal (Normal); Ketones,Urine Negative (Negative); Leukocyte Esterase,Urine Negative (Negative); Nitrite,Urine Negative (Negative); PH,Urine 6.5 pH Units (5.0-8.0); Protein,Urine Negative (Neg-Trace); Urobilinogen,Urine Normal (Normal)
[2021-10-17 21:38] LABS: Influenza A PCR Negative (Negative); Influenza B PCR Negative (Negative); Resp. Syncytial Virus PCR Negative (Negative)
[2021-10-17 21:40] LABS: SARS-CoV-2 by PCR (In House) Negative (Negative)
[2021-10-18] MEDS ORDERED: QUEtiapine Fumarate 25 MG TABLET PO PRN (02:32)
[2021-10-18] MEDS ORDERED: hydrOXYzine pamoate 25 MG CAPSULE PO PRN (02:32)
[2021-10-18] MEDS ORDERED: *HR* LORazepam 1 MG TABLET PO PRN (02:32)
[2021-10-18] MEDS ORDERED: *HR* LORazepam 2 MG/ML VIAL IM PRN (02:32)
[2021-10-18 09:56] VITALS: BP 124/91; PULSE 94; TEMP 97.6; O2SAT 96
[2021-10-18] MEDS ORDERED: traZODone 50 MG TABLET PO PRN (10:12)
[2021-10-18] MEDS ORDERED: Mag Hydrox/Al Hydrox/Simeth 30 ML UDC PO PRN (10:12)
[2021-10-18] MEDS ORDERED: MOM Conc 10 ML UD.LIQ PO PRN (10:12)
[2021-10-18] MEDS ORDERED: cloZAPine 25 MG TABLET PO SCH (10:15)
[2021-10-18] MEDS ORDERED: Gabapentin 300 MG CAPSULE PO SCH (10:15)
[2021-10-18] MEDS ORDERED: Famotidine 20 MG TABLET PO SCH (10:15)
[2021-10-18] MEDS ORDERED: OXcarbazepine 150 MG TABLET PO SCH (21:00)
[2021-10-21] MEDS ORDERED: ARIPiprazole 400 MG SUSER.SYR IM SCH (09:00)
== END 2021-10-18 14:00 | disposition home or self-care (01) ==
LOC: 1ANU 19:08 → EMEROOARM 19:08 → 1ANU 10-18 03:15
PROVIDERS: ADMIT Psychiatry & Neurology Psychiatry; ATTEND Psychiatry & Neurology Psychiatry

== ENCOUNTER 2021-11-13 23:57 | Inpatient (IN) ==
[2021-11-14 00:50] LABS: Bilirubin,Urine Negative (Negative); Blood,Urine Negative (Negative); Clarity,Urine Clear (Clear); Color,Urine Light-Yellow (Yellow); Glucose,Urine (UA) Normal (Normal); Ketones,Urine Negative (Negative); Leukocyte Esterase,Urine Negative (Negative); Nitrite,Urine Negative (Negative); Protein,Urine Trace mg/dL (Neg-Trace); Specific Gravity,Urine 1.026 (1.010-1.025); Urobilinogen,Urine Normal (Normal)
[2021-11-14 01:01] LABS: Amphetamine Screen,Urine Negative ng/mL (Cutoff=1000); Barbiturate Screen,Urine Negative ng/mL (Cutoff=200); Benzodiazepines Screen,Urine Negative ng/mL (Cutoff=200); Cannabinoid Screen,Urine Negative ng/mL (Cutoff = 50); Cocaine Screen,Urine Negative ng/mL (Cutoff= 300); Opiate Screen,Urine Negative ng/mL (Cutoff=300); Phencyclidine Screen,Urine Negative ng/mL (Cutoff=25)
[2021-11-14 01:14] LABS: Acetaminophen < 10 mcg/mL (10-20); BUN/Creatinine Ratio 11 (6-26); Blood Urea Nitrogen 12 mg/dL (6-20); Calcium 9.1 mg/dL (8.6-10.3); Carbon Dioxide 25 mEq/L (23-29); Chloride 104 mEq/L (98-107); Ethanol < 10 mg/dL (Less than 10); Glucose 106 mg/dL (70-105); Osmolality,Calculated 284 (280-300); Potassium 3.5 mEq/L (3.5-5.1); Salicylate < 2.5 mg/dL (15.0-30.0); Sodium 137 mEq/L (136-145); eGFR For African Americans > 60 (> 60); eGFR For Non-African Americans > 60 (> 60)
[2021-11-14 01:23] LABS: Immature Platelets 4.7 % (1.1-6.1)
[2021-11-14 01:28] LABS: Hemoglobin 16.7 g/dL (12.9-16.9); Immature Granulocytes % 0.3 % (0-4); Platelet Count 257 K/mcL (140-400)
[2021-11-14 01:30] LABS: Basophils # 0.1 K/mcL (0.0-0.2); Eosinophils # 0.1 K/mcL (0.0-0.6); Eosinophils % 1.2 %; Lymphocytes # 2.1 K/mcL (0.6-4.6); Lymphocytes % 22.2 %; Mean Corpuscular HGB Conc 34.1 g/dL (31.6-35.5); Mean Corpuscular Hemoglobin 30.4 pg (28.0-33.3); Mean Corpuscular Volume 89.3 fL (83.0-100.0); Mean Platelet Volume 10.2 fL (9.4-12.4); Monocytes # 0.8 K/mcL (0.0-1.3); Monocytes % 8.9 %; Neutrophils # 6.2 K/mcL (1.6-8.9); Red Blood Count 5.49 M/mcL (4.19-5.50); Red Cell Distribution Width 12.9 % (11.5-14.5); Segmented Neutrophils % 66.4 %; White Blood Count 9.3 K/mcL (4.3-11.1)
[2021-11-14 03:22] LABS: Estimated Average Glucose 105 mg/dl; Hemoglobin A1C 5.3 %
[2021-11-14] MEDS ORDERED: *HR* LORazepam 0.5 MG TABLET PO ONE (03:30)
[2021-11-14 06:24] LABS: Influenza A PCR Negative (Negative); Influenza B PCR Negative (Negative); Resp. Syncytial Virus PCR Negative (Negative)
[2021-11-14 06:34] LABS: SARS-CoV-2 by PCR (In House) Positive (Negative)
[2021-11-14] MEDS ORDERED: Naloxone 0.4 MG/ML INJ IVP PRN (09:53)
[2021-11-14] MEDS ORDERED: Acetaminophen 325 MG TABLET PO PRN (09:53)
[2021-11-14] MEDS ORDERED: *HR* LORazepam 2 MG/ML VIAL IVP PRN (12:21)
[2021-11-14] MEDS: *HR* Heparin 5,000 UNIT/ML VIAL SQ SCH ×2 (16:06→19:50)
[2021-11-14] MEDS: Gabapentin 300 MG CAPSULE PO SCH ×2 (16:06→20:29)
[2021-11-14] MEDS ORDERED: (Doxepin Hcl 10 MG Capsule) PO SCH (20:00)
[2021-11-14] MEDS ORDERED: traZODone 50 MG TABLET PO SCH (20:00)
[2021-11-14] MEDS: ARIPiprazole 10 MG TABLET PO SCH (20:27)
[2021-11-14] MEDS: cephALEXin 500 MG CAPSULE PO SCH (20:28)
[2021-11-14] MEDS: OXcarbazepine 150 MG TABLET PO SCH (20:28)
[2021-11-14] MEDS: cloZAPine 25 MG TABLET PO SCH (20:28)
[2021-11-14] MEDS: Nicotine 21 MG PATCH.TD24 TD SCH (20:29)
[2021-11-15] MEDS: *HR* Heparin 5,000 UNIT/ML VIAL SQ SCH ×3 (04:52→20:48)
[2021-11-15] MEDS: Vitamin B Complex/Vit C/Vit E 1 EACH TABLET PO SCH (07:39)
[2021-11-15] MEDS: Folic Acid 1 MG TABLET PO SCH (07:39)
[2021-11-15] MEDS: Nicotine 21 MG PATCH.TD24 TD SCH (07:39)
[2021-11-15] MEDS: OXcarbazepine 150 MG TABLET PO SCH ×2 (07:39→20:43)
[2021-11-15] MEDS: cloZAPine 25 MG TABLET PO SCH ×2 (07:39→20:43)
[2021-11-15] MEDS: Famotidine 20 MG TABLET PO SCH (07:40)
[2021-11-15] MEDS: cephALEXin 500 MG CAPSULE PO SCH (07:40)
[2021-11-15] MEDS: Gabapentin 300 MG CAPSULE PO SCH ×3 (07:40→20:42)
[2021-11-15] MEDS: *HR* LORazepam 2 MG/ML VIAL IVP PRN ×2 (11:19→15:42)
[2021-11-15] MEDS: Haloperidol Lactate 5 MG/ML VIAL IVP PRN (17:16)
[2021-11-15] MEDS: Melatonin 3 MG TABLET PO PRN (20:43)
[2021-11-15] MEDS: ARIPiprazole 10 MG TABLET PO SCH (20:48)
[2021-11-16] MEDS: *HR* Heparin 5,000 UNIT/ML VIAL SQ SCH ×3 (04:28→20:03)
[2021-11-16] MEDS: *HR* LORazepam 2 MG/ML VIAL IVP PRN ×3 (04:28→20:05)
[2021-11-16 07:16] LABS: Basophils # 0.1 K/mcL (0.0-0.2); Eosinophils # 0.2 K/mcL (0.0-0.6); Hematocrit 49.5 % (37.5-50.1); Hemoglobin 16.4 g/dL (12.9-16.9); Immature Granulocytes % 0.6 % (0-4); Lymphocytes # 2.4 K/mcL (0.6-4.6); Lymphocytes % 33.9 %; Mean Corpuscular HGB Conc 33.1 g/dL (31.6-35.5); Mean Corpuscular Hemoglobin 29.8 pg (28.0-33.3); Mean Platelet Volume 9.6 fL (9.4-12.4); Monocytes # 0.6 K/mcL (0.0-1.3); Monocytes % 8.9 %; Neutrophils # 3.8 K/mcL (1.6-8.9); Platelet Count 218 K/mcL (140-400); Red Cell Distribution Width 12.6 % (11.5-14.5); Segmented Neutrophils % 52.6 %; White Blood Count 7.1 K/mcL (4.3-11.1)
[2021-11-16] MEDS: cloZAPine 25 MG TABLET PO SCH ×2 (08:16→20:04)
[2021-11-16] MEDS: OXcarbazepine 150 MG TABLET PO SCH ×2 (08:16→20:04)
[2021-11-16] MEDS: Vitamin B Complex/Vit C/Vit E 1 EACH TABLET PO SCH (08:16)
[2021-11-16] MEDS: Folic Acid 1 MG TABLET PO SCH (08:16)
[2021-11-16] MEDS: Nicotine 21 MG PATCH.TD24 TD SCH (08:18)
[2021-11-16] MEDS: Famotidine 20 MG TABLET PO SCH (08:23)
[2021-11-16] MEDS: Gabapentin 300 MG CAPSULE PO SCH ×3 (08:23→20:03)
[2021-11-16] MEDS: Haloperidol Lactate 5 MG/ML VIAL IVP PRN ×2 (08:34→22:45)
[2021-11-16] MEDS ORDERED: Haloperidol Lactate 5 MG/ML VIAL IM ONE (18:55)
[2021-11-16] MEDS: ARIPiprazole 10 MG TABLET PO SCH (20:04)
[2021-11-17] MEDS: *HR* LORazepam 2 MG/ML VIAL IVP PRN ×5 (00:17→17:48)
[2021-11-17] MEDS: *HR* Heparin 5,000 UNIT/ML VIAL SQ SCH ×3 (07:22→20:27)
[2021-11-17] MEDS: Vitamin B Complex/Vit C/Vit E 1 EACH TABLET PO SCH (08:12)
[2021-11-17] MEDS: cloZAPine 25 MG TABLET PO SCH ×2 (08:13→20:27)
[2021-11-17] MEDS: OXcarbazepine 150 MG TABLET PO SCH ×2 (08:13→20:27)
[2021-11-17] MEDS: Folic Acid 1 MG TABLET PO SCH (08:13)
[2021-11-17] MEDS: Gabapentin 300 MG CAPSULE PO SCH ×3 (08:17→20:27)
[2021-11-17] MEDS: Famotidine 20 MG TABLET PO SCH (08:17)
[2021-11-17] MEDS: Nicotine 21 MG PATCH.TD24 TD SCH (10:30)
[2021-11-17] MEDS: Haloperidol Lactate 5 MG/ML VIAL IVP PRN (15:42)
[2021-11-17] MEDS: ARIPiprazole 10 MG TABLET PO SCH (20:27)
[2021-11-18] MEDS: *HR* LORazepam 2 MG/ML VIAL IVP PRN ×5 (01:17→15:53)
[2021-11-18] MEDS: *HR* Heparin 5,000 UNIT/ML VIAL SQ SCH ×4 (06:40→19:44)
[2021-11-18] MEDS: Haloperidol Lactate 5 MG/ML VIAL IVP PRN ×3 (09:01→19:32)
[2021-11-18] MEDS: cloZAPine 25 MG TABLET PO SCH ×2 (09:02→19:31)
[2021-11-18] MEDS: Vitamin B Complex/Vit C/Vit E 1 EACH TABLET PO SCH (09:02)
[2021-11-18] MEDS: Folic Acid 1 MG TABLET PO SCH (09:02)
[2021-11-18] MEDS: OXcarbazepine 150 MG TABLET PO SCH ×2 (09:03→19:31)
[2021-11-18] MEDS: Famotidine 20 MG TABLET PO SCH (09:05)
[2021-11-18] MEDS: Gabapentin 300 MG CAPSULE PO SCH ×3 (09:05→19:31)
[2021-11-18] MEDS: Nicotine 21 MG PATCH.TD24 TD SCH (13:11)
[2021-11-18] MEDS: ARIPiprazole 10 MG TABLET PO SCH (19:32)
[2021-11-19] MEDS: cloZAPine 25 MG TABLET PO SCH ×2 (08:19→20:40)
[2021-11-19] MEDS: OXcarbazepine 150 MG TABLET PO SCH ×2 (08:19→20:40)
[2021-11-19] MEDS: Haloperidol Lactate 5 MG/ML VIAL IVP PRN ×2 (08:20→15:46)
[2021-11-19] MEDS: Vitamin B Complex/Vit C/Vit E 1 EACH TABLET PO SCH (08:20)
[2021-11-19] MEDS: Folic Acid 1 MG TABLET PO SCH (08:20)
[2021-11-19] MEDS: Gabapentin 300 MG CAPSULE PO SCH ×3 (08:27→20:42)
[2021-11-19] MEDS: Famotidine 20 MG TABLET PO SCH (08:27)
[2021-11-19] MEDS: Nicotine 21 MG PATCH.TD24 TD SCH (08:27)
[2021-11-19] MEDS: *HR* LORazepam 1 MG TABLET PO PRN ×2 (13:53→18:29)
[2021-11-19] MEDS: *HR* Heparin 5,000 UNIT/ML VIAL SQ SCH (13:54)
[2021-11-19] MEDS: ARIPiprazole 10 MG TABLET PO SCH (20:40)
[2021-11-19] MEDS: Melatonin 3 MG TABLET PO PRN (20:40)
[2021-11-20] MEDS: *HR* LORazepam 1 MG TABLET PO PRN ×4 (00:49→19:47)
[2021-11-20] MEDS: *HR* Heparin 5,000 UNIT/ML VIAL SQ SCH ×4 (00:50→19:47)
[2021-11-20] MEDS: OXcarbazepine 150 MG TABLET PO SCH ×2 (08:51→19:46)
[2021-11-20] MEDS: Folic Acid 1 MG TABLET PO SCH (08:52)
[2021-11-20] MEDS: Nicotine 21 MG PATCH.TD24 TD SCH (08:52)
[2021-11-20] MEDS: Vitamin B Complex/Vit C/Vit E 1 EACH TABLET PO SCH (08:52)
[2021-11-20] MEDS: cloZAPine 25 MG TABLET PO SCH ×2 (08:52→19:46)
[2021-11-20] MEDS: Famotidine 20 MG TABLET PO SCH (08:57)
[2021-11-20] MEDS: Gabapentin 300 MG CAPSULE PO SCH ×3 (08:57→19:47)
[2021-11-20 18:08] LABS: Basophils # 0.1 K/mcL (0.0-0.2); Basophils % 1.1 %; Eosinophils # 0.3 K/mcL (0.0-0.6); Eosinophils % 3.4 %; Hematocrit 46.3 % (37.5-50.1); Hemoglobin 15.8 g/dL (12.9-16.9); Immature Granulocytes % 2.7 % (0-4); Lymphocytes # 2.2 K/mcL (0.6-4.6); Lymphocytes % 23.4 %; Mean Corpuscular HGB Conc 34.1 g/dL (31.6-35.5); Mean Corpuscular Volume 87.9 fL (83.0-100.0); Mean Platelet Volume 9.7 fL (9.4-12.4); Monocytes # 0.7 K/mcL (0.0-1.3); Monocytes % 7.2 %; Platelet Count 219 K/mcL (140-400); Red Blood Count 5.27 M/mcL (4.19-5.50); Red Cell Distribution Width 12.9 % (11.5-14.5); Segmented Neutrophils % 62.2 %; White Blood Count 9.6 K/mcL (4.3-11.1)
[2021-11-20] MEDS: ARIPiprazole 10 MG TABLET PO SCH (19:47)
[2021-11-20] MEDS: Melatonin 3 MG TABLET PO PRN (19:47)
[2021-11-21] MEDS: *HR* Heparin 5,000 UNIT/ML VIAL SQ SCH ×3 (04:15→20:34)
[2021-11-21] MEDS: *HR* LORazepam 1 MG TABLET PO PRN ×3 (04:25→20:27)
[2021-11-21] MEDS: OXcarbazepine 150 MG TABLET PO SCH ×2 (08:33→20:26)
[2021-11-21] MEDS: Vitamin B Complex/Vit C/Vit E 1 EACH TABLET PO SCH (08:33)
[2021-11-21] MEDS: cloZAPine 25 MG TABLET PO SCH ×2 (08:33→20:27)
[2021-11-21] MEDS: Gabapentin 300 MG CAPSULE PO SCH ×3 (08:34→20:28)
[2021-11-21] MEDS: Nicotine 21 MG PATCH.TD24 TD SCH (08:34)
[2021-11-21] MEDS: Folic Acid 1 MG TABLET PO SCH (08:34)
[2021-11-21] MEDS: Famotidine 20 MG TABLET PO SCH (08:34)
[2021-11-21] MEDS: *HR* LORazepam 2 MG/ML VIAL IM PRN (14:53)
[2021-11-21] MEDS: ARIPiprazole 10 MG TABLET PO SCH (20:28)
[2021-11-22] MEDS: *HR* Heparin 5,000 UNIT/ML VIAL SQ SCH ×3 (06:13→22:09)
[2021-11-22] MEDS: Gabapentin 300 MG CAPSULE PO SCH ×3 (08:57→19:50)
[2021-11-22] MEDS: Haloperidol Lactate 5 MG/ML VIAL IVP PRN (08:57)
[2021-11-22] MEDS: Famotidine 20 MG TABLET PO SCH (08:57)
[2021-11-22] MEDS: OXcarbazepine 150 MG TABLET PO SCH ×2 (08:58→19:57)
[2021-11-22] MEDS: Folic Acid 1 MG TABLET PO SCH (08:58)
[2021-11-22] MEDS: Nicotine 21 MG PATCH.TD24 TD SCH (08:58)
[2021-11-22] MEDS: *HR* LORazepam 1 MG TABLET PO PRN ×3 (08:58→22:09)
[2021-11-22] MEDS: Vitamin B Complex/Vit C/Vit E 1 EACH TABLET PO SCH (08:58)
[2021-11-22] MEDS: cloZAPine 25 MG TABLET PO SCH ×2 (08:58→19:50)
[2021-11-22] MEDS: ARIPiprazole 10 MG TABLET PO SCH (19:48)
[2021-11-23] MEDS: *HR* Heparin 5,000 UNIT/ML VIAL SQ SCH ×2 (04:26→14:30)
[2021-11-23] MEDS: Famotidine 20 MG TABLET PO SCH (09:56)
[2021-11-23] MEDS: Gabapentin 300 MG CAPSULE PO SCH ×3 (09:56→20:46)
[2021-11-23] MEDS: Vitamin B Complex/Vit C/Vit E 1 EACH TABLET PO SCH (09:56)
[2021-11-23] MEDS: OXcarbazepine 150 MG TABLET PO SCH ×2 (09:56→20:43)
[2021-11-23] MEDS: *HR* LORazepam 1 MG TABLET PO PRN ×3 (09:57→20:45)
[2021-11-23] MEDS: Folic Acid 1 MG TABLET PO SCH (09:57)
[2021-11-23] MEDS: cloZAPine 25 MG TABLET PO SCH ×2 (09:57→20:44)
[2021-11-23] MEDS: Nicotine 21 MG PATCH.TD24 TD SCH (09:58)
[2021-11-23] MEDS: ARIPiprazole 10 MG TABLET PO SCH (20:46)
[2021-11-24] MEDS: *HR* Heparin 5,000 UNIT/ML VIAL SQ SCH ×2 (00:11→07:00)
[2021-11-24] MEDS: *HR* LORazepam 2 MG/ML VIAL IM PRN (01:29)
[2021-11-24 02:35] LABS: Adenovirus Not Detected (Not Detect); Coronavirus 229E Not Detected (Not Detect); Coronavirus HKU1 Not Detected (Not Detect); Coronavirus NL63 Not Detected (Not Detect); Coronavirus OC43 Not Detected (Not Detect); Human Metapneumovirus Not Detected (Not Detect); Human Rhinovirus/Enterovirus Not Detected (Not Detect); Influenza A Subtype 2009 H1 Not Detected (Not Detect); Influenza B Not Detected (Not Detect); Parainfluenza Virus 1 Not Detected (Not Detect); Parainfluenza Virus 2 Not Detected (Not Detect); Parainfluenza Virus 3 Not Detected (Not Detect); Parainfluenza Virus 4 Not Detected (Not Detect); Respiratory Syncytial Virus Not Detected (Not Detect); SARS-CoV-2 Not Detected (Not Detect)
[2021-11-24 02:36] LABS: Bordetella Pertussis Not Detected (Not Detect); Chlamydophila pneumoniae Not Detected (Not Detect); Mycoplasma pneumoniae Not Detected (Not Detect)
[2021-11-24 07:00] VITALS: BP 132/91; PULSE 90; TEMP 97.9; O2SAT 97
[2021-11-24] MEDS: Folic Acid 1 MG TABLET PO SCH (08:08)
[2021-11-24] MEDS: Vitamin B Complex/Vit C/Vit E 1 EACH TABLET PO SCH (08:08)
[2021-11-24] MEDS: *HR* LORazepam 1 MG TABLET PO PRN (08:08)
[2021-11-24] MEDS: OXcarbazepine 150 MG TABLET PO SCH (08:08)
[2021-11-24] MEDS: Nicotine 21 MG PATCH.TD24 TD SCH (08:08)
[2021-11-24] MEDS: cloZAPine 25 MG TABLET PO SCH (08:08)
[2021-11-24] MEDS: Gabapentin 300 MG CAPSULE PO SCH (08:09)
[2021-11-24] MEDS: Famotidine 20 MG TABLET PO SCH (08:09)
== END 2021-11-24 10:36 | disposition home or self-care (01) | DRG 178 ==
LOC: EMEROOARM 23:57 → 3NENU 23:57 → SUATTDRO 11-14 10:12 → 3NENU 11-14 11:24 → SUATTDRO 11-17 15:08 → 3BNU 11-18 16:37
PROVIDERS: ADMIT Internal Medicine; ATTEND Internal Medicine

== ENCOUNTER 2022-01-03 14:34 | Inpatient (IN) ==
[2022-01-03 15:26] LABS: Amorphous Sediment,Urine Few per hpf (None-Few); Bacteria,Urine Few per hpf (None-Few); Bilirubin,Urine Negative (Negative); Blood,Urine Negative (Negative); Clarity,Urine Turbid (Clear); Color,Urine Yellow (Yellow); Glucose,Urine (UA) Normal (Normal); Ketones,Urine Negative (Negative); Leukocyte Esterase,Urine Negative (Negative); Nitrite,Urine Negative (Negative); PH,Urine 7.5 pH Units (5.0-8.0); Protein,Urine 30 mg/dL (Neg-Trace); Specific Gravity,Urine 1.021 (1.010-1.025); Urobilinogen,Urine Normal (Normal)
[2022-01-03 15:31] LABS: Basophils % 0.3 %; Eosinophils % 0.2 %; Hematocrit 51.8 % (37.5-50.1); Immature Granulocytes % 0.4 % (0-4); Lymphocytes # 1.4 K/mcL (0.6-4.6); Lymphocytes % 11.6 %; Mean Corpuscular HGB Conc 34.7 g/dL (31.6-35.5); Mean Corpuscular Hemoglobin 30.5 pg (28.0-33.3); Mean Corpuscular Volume 87.6 fL (83.0-100.0); Mean Platelet Volume 9.7 fL (9.4-12.4); Monocytes # 0.9 K/mcL (0.0-1.3); Monocytes % 7.5 %; Neutrophils # 9.6 K/mcL (1.6-8.9); Platelet Count 275 K/mcL (140-400); Red Blood Count 5.91 M/mcL (4.19-5.50)
[2022-01-03 15:40] LABS: Amphetamine Screen,Urine Negative ng/mL (Cutoff=1000); Barbiturate Screen,Urine Negative ng/mL (Cutoff=200); Benzodiazepines Screen,Urine Negative ng/mL (Cutoff=200); Cannabinoid Screen,Urine Positive ng/mL (Cutoff = 50); Cocaine Screen,Urine Positive ng/mL (Cutoff= 300); Opiate Screen,Urine Negative ng/mL (Cutoff=300); Phencyclidine Screen,Urine Negative ng/mL (Cutoff=25)
[2022-01-03 15:59] LABS: Acetaminophen < 10 mcg/mL (10-20); BUN/Creatinine Ratio 11 (6-26); Blood Urea Nitrogen 11 mg/dL (6-20); Calcium 9.5 mg/dL (8.6-10.3); Carbon Dioxide 24 mEq/L (23-29); Chloride 102 mEq/L (98-107); Chol/HDL Ratio 4.7 (0-4.9); Cholesterol 170 mg/dL (< 200); Ethanol < 10 mg/dL (Less than 10); Glucose 104 mg/dL (70-105); HDL Cholesterol 36 mg/dL (40-59); LDL Cholesterol,Calculated 95 mg/dL (< 100); Osmolality,Calculated 282 (280-300); Potassium 3.9 mEq/L (3.5-5.1); Salicylate < 2.5 mg/dL (15.0-30.0); Sodium 136 mEq/L (136-145); Triglycerides 194 mg/dL (< 150); eGFR For African Americans > 60 (> 60); eGFR For Non-African Americans > 60 (> 60)
[2022-01-03 16:35] LABS: Estimated Average Glucose 111 mg/dl; Hemoglobin A1C 5.5 %
[2022-01-03 20:59] LABS: Influenza A PCR Negative (Negative); Influenza B PCR Negative (Negative); Resp. Syncytial Virus PCR Negative (Negative)
[2022-01-03 21:12] LABS: SARS-CoV-2 by PCR (In House) Negative (Negative)
[2022-01-03] MEDS ORDERED: Acetaminophen 325 MG TABLET PO PRN (21:34)
[2022-01-03] MEDS ORDERED: *HR* LORazepam 1 MG TABLET PO PRN (21:34)
[2022-01-03] MEDS ORDERED: *HR* LORazepam 2 MG/ML VIAL IM PRN (21:34)
[2022-01-04] MEDS ORDERED: Ziprasidone 20 MG, Closed System Device IM Kit 1 EACH in Water for inj. (sterile) 1 ML IM PRN (10:29)
[2022-01-04] MEDS ORDERED: FluPHENAZine 10 MG TABLET PO PRN (10:30)
[2022-01-04] MEDS ORDERED: Mag Hydrox/Al Hydrox/Simeth 30 ML UDC PO PRN (10:31)
[2022-01-04] MEDS ORDERED: MOM Conc 10 ML UD.LIQ PO PRN (10:31)
[2022-01-04] MEDS: Famotidine 20 MG TABLET PO SCH (12:03)
[2022-01-04] MEDS: Vitamin B Complex/Vit C/Vit E 1 EACH TABLET PO SCH (12:03)
[2022-01-04] MEDS: Gabapentin 300 MG CAPSULE PO SCH ×3 (12:04→20:20)
[2022-01-04] MEDS: cloZAPine 25 MG TABLET PO SCH ×2 (12:04→20:20)
[2022-01-04] MEDS: OXcarbazepine 150 MG TABLET PO SCH ×2 (12:04→20:21)
[2022-01-04] MEDS: QUEtiapine Fumarate 25 MG TABLET PO PRN (20:23)
[2022-01-04] MEDS: hydrOXYzine pamoate 25 MG CAPSULE PO PRN (20:23)
[2022-01-05] MEDS: cloZAPine 25 MG TABLET PO SCH ×2 (09:32→20:41)
[2022-01-05] MEDS: Gabapentin 300 MG CAPSULE PO SCH ×3 (09:33→20:41)
[2022-01-05] MEDS: Famotidine 20 MG TABLET PO SCH (09:38)
[2022-01-05] MEDS: Vitamin B Complex/Vit C/Vit E 1 EACH TABLET PO SCH (09:39)
[2022-01-05] MEDS: OXcarbazepine 150 MG TABLET PO SCH ×2 (09:39→20:41)
[2022-01-05] MEDS: QUEtiapine Fumarate 25 MG TABLET PO PRN (20:40)
[2022-01-05] MEDS: hydrOXYzine pamoate 25 MG CAPSULE PO PRN (20:41)
[2022-01-06] MEDS: QUEtiapine Fumarate 25 MG TABLET PO PRN (00:59)
[2022-01-06 08:16] VITALS: BP 132/88; PULSE 80; TEMP 97.2; O2SAT 97
[2022-01-06] MEDS: Vitamin B Complex/Vit C/Vit E 1 EACH TABLET PO SCH (09:31)
[2022-01-06] MEDS: Famotidine 20 MG TABLET PO SCH (09:31)
[2022-01-06] MEDS: Gabapentin 300 MG CAPSULE PO SCH (09:32)
[2022-01-06] MEDS: cloZAPine 25 MG TABLET PO SCH (09:32)
[2022-01-06] MEDS: OXcarbazepine 150 MG TABLET PO SCH (09:32)
[2022-01-19] MEDS ORDERED: ARIPiprazole 400 MG SUSER.SYR IM SCH (11:30)
== END 2022-01-06 13:10 | disposition home or self-care (01) | DRG 885 ==
LOC: EMEROOARM 14:34 → 1ANU 21:26
PROVIDERS: ADMIT Psychiatry & Neurology Psychiatry; ATTEND Psychiatry & Neurology Psychiatry

== ENCOUNTER 2022-04-27 17:32 | Inpatient (IN) ==
[2022-04-27 18:14] LABS: Bilirubin,Urine Negative (Negative); Blood,Urine Negative (Negative); Clarity,Urine Clear (Clear); Color,Urine Light-Yellow (Yellow); Glucose,Urine (UA) Normal (Normal); Ketones,Urine Negative (Negative); Leukocyte Esterase,Urine Negative (Negative); Nitrite,Urine Negative (Negative); Protein,Urine Trace mg/dL (Neg-Trace); Specific Gravity,Urine 1.022 (1.010-1.025); Urobilinogen,Urine Normal (Normal)
[2022-04-27 18:20] LABS: Basophils % 0.4 %; Eosinophils # 0.1 K/mcL (0.0-0.6); Eosinophils % 1.4 %; Hematocrit 48.3 % (37.5-50.1); Hemoglobin 16.4 g/dL (12.9-16.9); Immature Granulocytes % 0.4 % (0-4); Lymphocytes # 2.3 K/mcL (0.6-4.6); Lymphocytes % 22.9 %; Mean Corpuscular Hemoglobin 30.2 pg (28.0-33.3); Mean Platelet Volume 9.8 fL (9.4-12.4); Monocytes # 0.4 K/mcL (0.0-1.3); Monocytes % 3.7 %; Neutrophils # 7.1 K/mcL (1.6-8.9); Platelet Count 279 K/mcL (140-400); Red Blood Count 5.43 M/mcL (4.19-5.50); Red Cell Distribution Width 13.2 % (11.5-14.5); Segmented Neutrophils % 71.2 %
[2022-04-27 18:28] LABS: Amphetamine Screen,Urine Negative ng/mL (Cutoff=1000); Barbiturate Screen,Urine Negative ng/mL (Cutoff=200); Benzodiazepines Screen,Urine Negative ng/mL (Cutoff=200); Cannabinoid Screen,Urine Negative ng/mL (Cutoff = 50); Cocaine Screen,Urine Negative ng/mL (Cutoff= 300); Opiate Screen,Urine Negative ng/mL (Cutoff=300); Phencyclidine Screen,Urine Negative ng/mL (Cutoff=25)
[2022-04-27 18:39] LABS: Acetaminophen < 10 mcg/mL (10-20); BUN/Creatinine Ratio 9 (6-26); Blood Urea Nitrogen 9 mg/dL (6-20); Calcium 9.2 mg/dL (8.6-10.3); Carbon Dioxide 25 mEq/L (23-29); Chloride 105 mEq/L (98-107); Chol/HDL Ratio 4.4 (0-4.9); Cholesterol 137 mg/dL (< 200); Ethanol < 10 mg/dL (Less than 10); Glucose 143 mg/dL (70-105); HDL Cholesterol 31 mg/dL (40-59); LDL Cholesterol,Calculated 80 mg/dL (< 100); Osmolality,Calculated 287 (280-300); Potassium 3.4 mEq/L (3.5-5.1); Salicylate < 2.5 mg/dL (15.0-30.0); Sodium 138 mEq/L (136-145); Triglycerides 131 mg/dL (< 150)
[2022-04-27 19:10] LABS: Estimated Average Glucose 111 mg/dl; Hemoglobin A1C 5.5 %
[2022-04-27 21:55] LABS: Influenza A PCR Negative (Negative); Influenza B PCR Negative (Negative); Resp. Syncytial Virus PCR Negative (Negative)
[2022-04-27 21:57] LABS: SARS-CoV-2 by PCR (In House) Negative (Negative)
[2022-04-28] MEDS ORDERED: hydrOXYzine pamoate 25 MG CAPSULE PO PRN (01:07)
[2022-04-28] MEDS ORDERED: *HR* LORazepam 1 MG TABLET PO PRN (01:07)
[2022-04-28] MEDS ORDERED: traZODone 50 MG TABLET PO PRN (01:07)
[2022-04-28] MEDS ORDERED: *HR* LORazepam 2 MG/ML VIAL IM PRN (01:07)
[2022-04-28] MEDS ORDERED: Acetaminophen 325 MG TABLET PO PRN (01:07)
[2022-04-28] MEDS: OXcarbazepine 150 MG TABLET PO SCH ×2 (08:32→21:28)
[2022-04-28] MEDS ORDERED: Mag Hydrox/Al Hydrox/Simeth 30 ML UDC PO PRN (10:35)
[2022-04-28] MEDS ORDERED: MOM Conc 10 ML UD.LIQ PO PRN (10:35)
[2022-04-28] MEDS ORDERED: Ziprasidone 20 MG, Closed System Device IM Kit 1 EACH in Water for inj. (sterile) 1 ML IM PRN (10:36)
[2022-04-28] MEDS ORDERED: Ziprasidone 20 MG CAPSULE PO PRN (10:46)
[2022-04-28] MEDS: Nicotine 21 MG PATCH.TD24 TD SCH (15:05)
[2022-04-28] MEDS ORDERED: DOXEPIN 10MG PO SCH (21:00)
[2022-04-29] MEDS: Nicotine 21 MG PATCH.TD24 TD SCH (08:12)
[2022-04-29] MEDS: OXcarbazepine 150 MG TABLET PO SCH (08:12)
[2022-04-29 09:12] VITALS: BP 136/91; PULSE 71; TEMP 97.2; O2SAT 98
== END 2022-04-29 12:32 | disposition home or self-care (01) | DRG 885 ==
LOC: EMEROOARM 17:32 → 1ANU 04-28 00:40
PROVIDERS: ADMIT Psychiatry & Neurology Psychiatry; ATTEND Psychiatry & Neurology Psychiatry

== ENCOUNTER 2022-05-02 13:46 | Inpatient (IN) ==
[2022-05-02 14:34] LABS: Bilirubin,Urine Negative (Negative); Blood,Urine Negative (Negative); Clarity,Urine Clear (Clear); Color,Urine Light-Yellow (Yellow); Glucose,Urine (UA) Normal (Normal); Ketones,Urine Negative (Negative); Leukocyte Esterase,Urine Negative (Negative); Nitrite,Urine Negative (Negative); PH,Urine 5.5 pH Units (5.0-8.0); Protein,Urine Negative (Neg-Trace); Specific Gravity,Urine 1.013 (1.010-1.025); Urobilinogen,Urine Normal (Normal)
[2022-05-02 14:40] LABS: Basophils # 0.1 K/mcL (0.0-0.2); Basophils % 0.6 %; Eosinophils # 0.1 K/mcL (0.0-0.6); Eosinophils % 0.9 %; Hematocrit 50.1 % (37.5-50.1); Hemoglobin 17.3 g/dL (12.9-16.9); Immature Granulocytes % 0.5 % (0-4); Lymphocytes # 1.7 K/mcL (0.6-4.6); Lymphocytes % 16.1 %; Mean Corpuscular HGB Conc 34.5 g/dL (31.6-35.5); Mean Corpuscular Hemoglobin 30.7 pg (28.0-33.3); Mean Corpuscular Volume 88.8 fL (83.0-100.0); Mean Platelet Volume 9.8 fL (9.4-12.4); Monocytes # 0.7 K/mcL (0.0-1.3); Monocytes % 6.5 %; Neutrophils # 7.7 K/mcL (1.6-8.9); Platelet Count 249 K/mcL (140-400); Red Blood Count 5.64 M/mcL (4.19-5.50); Red Cell Distribution Width 12.9 % (11.5-14.5); Segmented Neutrophils % 75.4 %; White Blood Count 10.3 K/mcL (4.3-11.1)
[2022-05-02 14:46] LABS: Amphetamine Screen,Urine Negative ng/mL (Cutoff=1000); Barbiturate Screen,Urine Negative ng/mL (Cutoff=200); Benzodiazepines Screen,Urine Negative ng/mL (Cutoff=200); Cannabinoid Screen,Urine Negative ng/mL (Cutoff = 50); Cocaine Screen,Urine Negative ng/mL (Cutoff= 300); Opiate Screen,Urine Negative ng/mL (Cutoff=300); Phencyclidine Screen,Urine Negative ng/mL (Cutoff=25)
[2022-05-02 14:57] LABS: Acetaminophen < 10 mcg/mL (10-20); Alanine Aminotransferase 16 Units/L (7-52); Albumin 4.3 g/dL (3.5-5.7); Albumin/Globulin Ratio 1.5 (1.1-2.2); Alkaline Phosphatase 83 Units/L (34-104); Aspartate Amino Transferase 13 Units/L (13-39); BUN/Creatinine Ratio 9 (6-26); Bilirubin,Direct 0.1 mg/dL (0.0-0.2); Bilirubin,Indirect 0.3 mg/dL (0.0-1.0); Bilirubin,Total 0.4 mg/dL (0.3-1.0); Blood Urea Nitrogen 9 mg/dL (6-20); Carbon Dioxide 24 mEq/L (23-29); Chloride 106 mEq/L (98-107); Chol/HDL Ratio 4.3 (0-4.9); Cholesterol 155 mg/dL (< 200); Ethanol < 10 mg/dL (Less than 10); Globulin 2.9 g/dL (2.4-3.5); Glucose 105 mg/dL (70-105); HDL Cholesterol 36 mg/dL (40-59); LDL Cholesterol,Calculated 78 mg/dL (< 100); Osmolality,Calculated 287 (280-300); Potassium 3.8 mEq/L (3.5-5.1); Salicylate < 2.5 mg/dL (15.0-30.0); Sodium 139 mEq/L (136-145); Total Protein 7.2 g/dL (6.4-8.9); Triglycerides 205 mg/dL (< 150)
[2022-05-02 15:30] LABS: Estimated Average Glucose 111 mg/dl; Hemoglobin A1C 5.5 %
[2022-05-02] MEDS ORDERED: OLANZapine 5 MG TAB.RAPDIS PO ONE (15:30)
[2022-05-02] MEDS ORDERED: *HR* LORazepam 2 MG/ML VIAL IM PRN (18:29)
[2022-05-02] MEDS ORDERED: Ibuprofen 400 MG TABLET PO PRN (18:29)
[2022-05-02] MEDS ORDERED: *HR* LORazepam 1 MG TABLET PO PRN (18:29)
[2022-05-02] MEDS ORDERED: Acetaminophen 325 MG TABLET PO PRN (18:29)
[2022-05-02 18:56] LABS: Influenza A PCR Negative (Negative); Influenza B PCR Negative (Negative); Resp. Syncytial Virus PCR Negative (Negative)
[2022-05-02 18:58] LABS: SARS-CoV-2 by PCR (In House) Negative (Negative)
[2022-05-02] MEDS: hydrOXYzine pamoate 25 MG CAPSULE PO PRN (20:56)
[2022-05-02] MEDS: OXcarbazepine 150 MG TABLET PO SCH (20:56)
[2022-05-02] MEDS: traZODone 50 MG TABLET PO PRN (20:56)
[2022-05-03] MEDS: Vitamin B Complex/Vit C/Vit E 1 EACH TABLET PO SCH (08:48)
[2022-05-03] MEDS: OXcarbazepine 150 MG TABLET PO SCH ×2 (08:48→20:49)
[2022-05-03] MEDS ORDERED: ARIPiprazole 400 MG SUSER.SYR IM SCH (11:00)
[2022-05-03] MEDS: Nicotine 21 MG PATCH.TD24 TD SCH (13:30)
[2022-05-03] MEDS ORDERED: MOM Conc 10 ML UD.LIQ PO PRN (14:20)
[2022-05-03] MEDS ORDERED: Mag Hydrox/Al Hydrox/Simeth 30 ML UDC PO PRN (14:20)
[2022-05-03] MEDS ORDERED: Ziprasidone 20 MG CAPSULE PO PRN (14:23)
[2022-05-03] MEDS ORDERED: Ziprasidone 20 MG, Closed System Device IM Kit 1 EACH in Water for inj. (sterile) 1 ML IM PRN (14:23)
[2022-05-03] MEDS: traZODone 50 MG TABLET PO PRN (20:49)
[2022-05-04] MEDS: Vitamin B Complex/Vit C/Vit E 1 EACH TABLET PO SCH (08:21)
[2022-05-04] MEDS: OXcarbazepine 150 MG TABLET PO SCH ×2 (08:22→20:35)
[2022-05-04] MEDS: Nicotine 21 MG PATCH.TD24 TD SCH (08:22)
[2022-05-04] MEDS: hydrOXYzine pamoate 25 MG CAPSULE PO PRN (20:35)
[2022-05-04] MEDS: traZODone 50 MG TABLET PO PRN (20:35)
[2022-05-05] MEDS: Nicotine 21 MG PATCH.TD24 TD SCH (08:27)
[2022-05-05] MEDS: OXcarbazepine 150 MG TABLET PO SCH ×2 (08:28→20:44)
[2022-05-05] MEDS: Vitamin B Complex/Vit C/Vit E 1 EACH TABLET PO SCH (08:28)
[2022-05-05 10:11] VITALS: O2SAT 98
[2022-05-05] MEDS: hydrOXYzine pamoate 25 MG CAPSULE PO PRN (17:23)
[2022-05-05] MEDS ORDERED: traZODone 50 MG TABLET ONE (20:28)
[2022-05-05] MEDS ORDERED: OXcarbazepine 150 MG TABLET PO ONE (20:28)
[2022-05-05] MEDS ORDERED: chlorproMAZINE 25 MG TABLET PO ONE (20:28)
[2022-05-05] MEDS: traZODone 50 MG TABLET PO PRN (20:44)
[2022-05-05] MEDS ORDERED: chlorproMAZINE 25 MG TABLET PO SCH (21:00)
[2022-05-06] MEDS: Vitamin B Complex/Vit C/Vit E 1 EACH TABLET PO SCH (08:47)
[2022-05-06] MEDS: Nicotine 21 MG PATCH.TD24 TD SCH (08:47)
[2022-05-06] MEDS: OXcarbazepine 150 MG TABLET PO SCH (08:47)
[2022-05-06 09:30] VITALS: BP 129/81; PULSE 92; TEMP 98.1
[2022-05-06] MEDS: hydrOXYzine pamoate 25 MG CAPSULE PO PRN (11:31)
== END 2022-05-06 15:55 | disposition other institution (70) | DRG 885 ==
LOC: EMEROOARM 13:46 → 1ANU 19:23
PROVIDERS: ADMIT Psychiatry & Neurology Psychiatry; ATTEND Psychiatry & Neurology Psychiatry

== ENCOUNTER 2022-05-30 21:16 | Observation (INO) ==
[2022-05-30 22:25] LABS: Bilirubin,Urine Negative (Negative); Blood,Urine Negative (Negative); Clarity,Urine Turbid (Clear); Color,Urine Light-Yellow (Yellow); Glucose,Urine (UA) 70 mg/dL (Normal); Ketones,Urine Negative (Negative); Leukocyte Esterase,Urine Negative (Negative); Mucus,Urine Few per lpf (None-Few); Nitrite,Urine Negative (Negative); Protein,Urine Trace mg/dL (Neg-Trace); RBC,Urine 0-3 per hpf (0-3); Specific Gravity,Urine 1.019 (1.010-1.025); Urobilinogen,Urine Normal (Normal); WBC,Urine 0-3 per hpf (0-3)
[2022-05-30 22:27] LABS: Basophils % 0.4 %; Eosinophils # 0.1 K/mcL (0.0-0.6); Eosinophils % 0.6 %; Hemoglobin 16.1 g/dL (12.9-16.9); Immature Granulocytes % 0.5 % (0-4); Lymphocytes # 2.4 K/mcL (0.6-4.6); Lymphocytes % 22.6 %; Mean Corpuscular HGB Conc 33.5 g/dL (31.6-35.5); Mean Corpuscular Hemoglobin 30.1 pg (28.0-33.3); Mean Corpuscular Volume 89.9 fL (83.0-100.0); Mean Platelet Volume 9.7 fL (9.4-12.4); Monocytes # 0.7 K/mcL (0.0-1.3); Monocytes % 6.6 %; Neutrophils # 7.3 K/mcL (1.6-8.9); Platelet Count 285 K/mcL (140-400); Red Blood Count 5.34 M/mcL (4.19-5.50); Segmented Neutrophils % 69.3 %; White Blood Count 10.5 K/mcL (4.3-11.1)
[2022-05-30 22:45] LABS: Acetaminophen < 10 mcg/mL (10-20); BUN/Creatinine Ratio 11 (6-26); Blood Urea Nitrogen 12 mg/dL (6-20); Calcium 9.2 mg/dL (8.6-10.3); Carbon Dioxide 23 mEq/L (23-29); Chloride 102 mEq/L (98-107); Ethanol < 10 mg/dL (Less than 10); Glucose 156 mg/dL (70-105); Osmolality,Calculated 285 (280-300); Potassium 3.5 mEq/L (3.5-5.1); Salicylate < 2.5 mg/dL (15.0-30.0); Sodium 136 mEq/L (136-145)
[2022-05-30 23:01] LABS: Amphetamine Screen,Urine Negative ng/mL (Cutoff=1000); Barbiturate Screen,Urine Negative ng/mL (Cutoff=200); Cannabinoid Screen,Urine Positive ng/mL (Cutoff = 50); Cocaine Screen,Urine Negative ng/mL (Cutoff= 300); Opiate Screen,Urine Negative ng/mL (Cutoff=300); Phencyclidine Screen,Urine Negative ng/mL (Cutoff=25)
[2022-05-30 23:55] LABS: Influenza A PCR Negative (Negative); Influenza B PCR Negative (Negative); Resp. Syncytial Virus PCR Negative (Negative)
[2022-05-31 00:09] LABS: SARS-CoV-2 by PCR (In House) Negative (Negative)
[2022-05-31] MEDS ORDERED: Acetaminophen 325 MG TABLET PO PRN (12:18)
[2022-05-31] MEDS ORDERED: QUEtiapine Fumarate 25 MG TABLET PO PRN (12:18)
[2022-05-31] MEDS ORDERED: hydrOXYzine pamoate 25 MG CAPSULE PO PRN (12:18)
[2022-05-31] MEDS ORDERED: *HR* LORazepam 2 MG/ML VIAL IM PRN (12:18)
[2022-05-31] MEDS ORDERED: *HR* LORazepam 1 MG TABLET PO PRN (12:18)
[2022-05-31] MEDS ORDERED: MOM Conc 10 ML UD.LIQ PO PRN (12:18)
[2022-05-31] MEDS ORDERED: Nicotine 21 MG PATCH.TD24 TD PRN (12:18)
[2022-05-31] MEDS ORDERED: Mag Hydrox/Al Hydrox/Simeth 30 ML UDC PO PRN (12:18)
[2022-05-31] MEDS: OXcarbazepine 150 MG TABLET PO SCH (20:31)
[2022-05-31] MEDS ORDERED: chlorproMAZINE 25 MG TABLET PO SCH (21:00)
[2022-06-01] MEDS: OXcarbazepine 150 MG TABLET PO SCH (08:12)
[2022-06-01 10:11] VITALS: BP 119/84; PULSE 72; TEMP 98.1; O2SAT 96
[2022-06-01] MEDS ORDERED: ARIPiprazole 400 MG SUSER.SYR IM SCH (11:15)
[2022-06-01 13:02] LABS: Influenza A PCR Negative (Negative); Influenza B PCR Negative (Negative); Resp. Syncytial Virus PCR Negative (Negative); SARS-CoV-2 by PCR (In House) Negative (Negative)
[2022-06-02 14:56] LABS: Benzodiazepines Screen,Urine Negative ng/mL (Cutoff=200)
== END 2022-06-01 15:20 | disposition home or self-care (01) ==
LOC: EMEROOARM 21:16 → INTOOBSV 05-31 12:52 → 1ANU 05-31 12:52
PROVIDERS: ADMIT Psychiatry & Neurology Psychiatry; ATTEND Psychiatry & Neurology Psychiatry

== ENCOUNTER 2022-06-30 16:28 | Inpatient (IN) ==
[2022-06-30 17:35] LABS: Basophils # 0.1 K/mcL (0.0-0.2); Basophils % 0.8 %; Eosinophils # 0.2 K/mcL (0.0-0.6); Eosinophils % 1.9 %; Hematocrit 48.7 % (37.5-50.1); Hemoglobin 16.5 g/dL (12.9-16.9); Immature Granulocytes % 0.3 % (0-4); Lymphocytes % 19.8 %; Mean Corpuscular HGB Conc 33.9 g/dL (31.6-35.5); Mean Corpuscular Hemoglobin 30.3 pg (28.0-33.3); Mean Corpuscular Volume 89.4 fL (83.0-100.0); Mean Platelet Volume 9.6 fL (9.4-12.4); Monocytes # 0.6 K/mcL (0.0-1.3); Monocytes % 5.8 %; Neutrophils # 7.2 K/mcL (1.6-8.9); Platelet Count 273 K/mcL (140-400); Red Blood Count 5.45 M/mcL (4.19-5.50); Red Cell Distribution Width 13.3 % (11.5-14.5); Segmented Neutrophils % 71.4 %; White Blood Count 10.1 K/mcL (4.3-11.1)
[2022-06-30 17:40] LABS: Bilirubin,Urine Negative (Negative); Blood,Urine Negative (Negative); Clarity,Urine Clear (Clear); Color,Urine Light-Yellow (Yellow); Glucose,Urine (UA) Normal (Normal); Ketones,Urine Trace mg/dL (Negative); Leukocyte Esterase,Urine Negative (Negative); Nitrite,Urine Negative (Negative); Protein,Urine Trace mg/dL (Neg-Trace); Specific Gravity,Urine 1.027 (1.010-1.025); Urobilinogen,Urine Normal (Normal)
[2022-06-30] MEDS ORDERED: *HR* LORazepam 1 MG TABLET PO ONE (17:49)
[2022-06-30 17:58] LABS: Acetaminophen < 10 mcg/mL (10-20); Alanine Aminotransferase 19 Units/L (7-52); Albumin 4.1 g/dL (3.5-5.7); Albumin/Globulin Ratio 1.5 (1.1-2.2); Alkaline Phosphatase 76 Units/L (34-104); Aspartate Amino Transferase 18 Units/L (13-39); BUN/Creatinine Ratio 14 (6-26); Bilirubin,Indirect 0.3 mg/dL (0.0-1.0); Bilirubin,Total 0.3 mg/dL (0.3-1.0); Blood Urea Nitrogen 14 mg/dL (6-20); Calcium 9.2 mg/dL (8.6-10.3); Carbon Dioxide 24 mEq/L (23-29); Chloride 109 mEq/L (98-107); Chol/HDL Ratio 3.4 (0-4.9); Cholesterol 120 mg/dL (< 200); Ethanol < 10 mg/dL (Less than 10); Globulin 2.7 g/dL (2.4-3.5); Glucose 120 mg/dL (70-105); HDL Cholesterol 35 mg/dL (40-59); LDL Cholesterol,Calculated 73 mg/dL (< 100); Osmolality,Calculated 290 (280-300); Potassium 3.9 mEq/L (3.5-5.1); Salicylate < 2.5 mg/dL (15.0-30.0); Sodium 139 mEq/L (136-145); Total Protein 6.8 g/dL (6.4-8.9); Triglycerides 61 mg/dL (< 150)
[2022-06-30 18:10] LABS: Thyroid Stimulating Hormone 1.162 mcIU/mL (0.340-5.600)
[2022-06-30 18:45] LABS: Estimated Average Glucose 105 mg/dl; Hemoglobin A1C 5.3 %
[2022-06-30 19:05] LABS: Influenza A PCR Negative (Negative); Influenza B PCR Negative (Negative); Resp. Syncytial Virus PCR Negative (Negative); SARS-CoV-2 by PCR (In House) Negative (Negative)
[2022-06-30 19:07] LABS: Amphetamine Screen,Urine Negative ng/mL (Cutoff=1000); Barbiturate Screen,Urine Negative ng/mL (Cutoff=200); Benzodiazepines Screen,Urine Negative ng/mL (Cutoff=200); Cannabinoid Screen,Urine Negative ng/mL (Cutoff = 50); Cocaine Screen,Urine Negative ng/mL (Cutoff= 300); Opiate Screen,Urine Negative ng/mL (Cutoff=300); Phencyclidine Screen,Urine Negative ng/mL (Cutoff=25)
[2022-06-30] MEDS ORDERED: Acetaminophen 325 MG TABLET PO PRN (22:36)
[2022-06-30] MEDS ORDERED: *HR* LORazepam 2 MG/ML VIAL IM PRN (22:36)
[2022-06-30] MEDS ORDERED: haloperidoL 5 MG TABLET PO PRN (22:36)
[2022-06-30] MEDS ORDERED: Haloperidol Lactate 5 MG/ML VIAL IM PRN (22:36)
[2022-07-01] MEDS: OXcarbazepine 150 MG TABLET PO SCH ×3 (00:16→20:08)
[2022-07-01] MEDS: ARIPiprazole 5 MG TABLET PO SCH ×2 (00:16→20:09)
[2022-07-01] MEDS: metroNIDAZOLE 500 MG TABLET PO SCH ×3 (00:16→20:10)
[2022-07-01] MEDS: QUEtiapine Fumarate 25 MG TABLET PO PRN ×2 (00:17→20:10)
[2022-07-01] MEDS: OLANZapine 5 MG TAB.RAPDIS PO SCH ×2 (00:17→08:00)
[2022-07-01] MEDS: Nicotine 21 MG PATCH.TD24 TD SCH (10:38)
[2022-07-01] MEDS ORDERED: ChlorproMAZINE 25 MG/ML AMPUL IM PRN (11:22)
[2022-07-01] MEDS: chlorproMAZINE 25 MG TABLET PO PRN ×3 (11:48→21:15)
[2022-07-01] MEDS: hydrOXYzine pamoate 25 MG CAPSULE PO PRN ×2 (16:18→20:54)
[2022-07-01] MEDS ORDERED: OXCARBAZEPINE 300 MG PO SCH (21:00)
[2022-07-01] MEDS: *HR* LORazepam 1 MG TABLET PO PRN (21:16)
[2022-07-02] MEDS: chlorproMAZINE 25 MG TABLET PO PRN ×2 (06:58→15:27)
[2022-07-02] MEDS: *HR* LORazepam 1 MG TABLET PO PRN ×2 (06:59→11:44)
[2022-07-02] MEDS: OXcarbazepine 150 MG TABLET PO SCH ×2 (08:09→20:52)
[2022-07-02] MEDS: Nicotine 21 MG PATCH.TD24 TD SCH (08:09)
[2022-07-02] MEDS: metroNIDAZOLE 500 MG TABLET PO SCH ×2 (08:09→20:53)
[2022-07-02] MEDS: OLANZapine 5 MG TAB.RAPDIS PO SCH (08:09)
[2022-07-02] MEDS: hydrOXYzine pamoate 25 MG CAPSULE PO PRN ×3 (08:11→20:53)
[2022-07-02] MEDS: ARIPiprazole 5 MG TABLET PO SCH (20:52)
[2022-07-02] MEDS: QUEtiapine Fumarate 25 MG TABLET PO PRN (20:53)
[2022-07-03] MEDS: hydrOXYzine pamoate 25 MG CAPSULE PO PRN (06:56)
[2022-07-03] MEDS: OXcarbazepine 150 MG TABLET PO SCH (08:54)
[2022-07-03] MEDS: metroNIDAZOLE 500 MG TABLET PO SCH (08:54)
[2022-07-03] MEDS: OLANZapine 5 MG TAB.RAPDIS PO SCH (08:54)
[2022-07-03] MEDS: Nicotine 21 MG PATCH.TD24 TD SCH (08:56)
[2022-07-03 09:15] VITALS: BP 133/93; PULSE 86; TEMP 97.7; O2SAT 97
[2022-07-08] MEDS ORDERED: OLANZapine 10 MG TAB.RAPDIS PO SCH (09:00)
== END 2022-07-03 13:33 | disposition other institution (70) | DRG 885 ==
LOC: 1ANU 16:28 → EMEROOARM 16:28 → 1ANU 23:55
PROVIDERS: ADMIT Psychiatry & Neurology Psychiatry; ATTEND Psychiatry & Neurology Psychiatry